=== PATIENT | male | born 1940 | race Caucasian/White ===

== ENCOUNTER → 2019-03-31 06:09 | Outpatient (CLI) | payer MEDICARE, OTHER, SELFPAY ==
[2018-10-10 09:44] VITALS: BMI 33.0
--- NOTE | 2019-03-31 10:32 | PFTCOMP ---
COMPLETE PULMONARY FUNCTION TEST INTERPRETATION Brief HPI: Patient is an 78 year old male, currently under the care of Dr. Orozco, who presents to [facility] for complete pulmonary function tests secondary to diagnosis of COPD. Respiratory therapist reports good effort and reproducible results. Interpretation: Forced expiration spirometry shows no large airways obstructive ventilatory defect with an FEV1 of 113% predicted. There is no significant bronchodilator response by strict ATS criteria. Spirograms are of good quality and plateau normally. The respiratory flow volume loop shows a normal pattern. Lung volumes by body plethysmography show a normal total lung capacity at 6.99 L, 110% predicted. All other lung volumes are within normal limits. Diffusion capacity by carbon monoxide is normal at 105% predicted. The airway resistance is normal. No previous pulmonary function tests were available for review. Impression: These pulmonary function tests are within normal limits.
== END ==
PROVIDERS: Family Provider Physician Assistant; PCP Physician Assistant; Referring Provider Internal Medicine Critical Care Medicine; Visit Provider Internal Medicine Critical Care Medicine
DX: J45.909 Unspecified asthma, uncomplicated (principal); G47.33 Obstructive sleep apnea (adult) (pediatric)
CPT/HCPCS: 94060; 94726; 94729

== ENCOUNTER → 2021-05-19 11:31 | Outpatient (CLI) | payer MEDICARE, OTHER, SELFPAY ==
[2021-04-29 13:41] VITALS: BMI 33.2
[2021-05-19 13:10] LABS: PSA,Total- Diagnostic 7.21 ng/mL (0.0-4.0)
== END ==
PROVIDERS: PCP Physician Assistant; Referring Provider Nurse Practitioner Adult Health; Visit Provider Nurse Practitioner Adult Health
DX: R31.0 Gross hematuria (principal)
CPT/HCPCS: 36415; 84153

== ENCOUNTER 2021-07-07 22:58 | Inpatient (IN) | payer MEDICARE, OTHER, SELFPAY ==
[2021-07-07 21:05] VITALS: BP 158/94; PULSE 94; RESP 16; TEMP 36.6; O2SAT 100
[2021-07-07 22:21] VITALS: BMI 38.7
[2021-07-07 23:04] VITALS: BP 161/97; PULSE 89; RESP 18; TEMP 36.7; O2SAT 100
[2021-07-07] MEDS: 0.9% Saline Lock 10 ML Syringe IV (23:27)
[2021-07-07] MEDS: 0.9% Normal Saline 1,000 ML 50 ML IV (23:27)
[2021-07-07 23:36] VITALS: BMI 38.7
--- NOTE | 2021-07-07 23:44 | EKG12_ITS ---
Test Reason : PRE OP Blood Pressure : / mmHG Vent. Rate : 085 BPM Atrial Rate : 085 BPM P-R Int : 178 ms QRS Dur : 076 ms QT Int : 362 ms P-R-T Axes : 058 044 052 degrees QTc Int : 430 ms Normal sinus rhythm Normal ECG No previous ECGs available Confirmed by DANIA MONSIVAIS, FRANCIA ([id number]), scientific editor MIRIAN ANGELES ([id number]) on 07/15/2021 10:22:27 AM Referred By: FLORINA Confirmed By:FRANCIA NAJERA MD
--- NOTE | 2021-07-07 23:47 | HP.PCM_ITS ---
HPI - General General Date of Admission: 07/07/21 HPI Narrative 80-year-old male transferred outside hospital is having severe bleeding from the prostate and bladder CAT scan was done demonstrated them distended bladder they were able to get a catheter in but could not get the clots out so he was transferred here again who tried multiple catheters can get the clots out so when taken the surgery to irrigate out the blood clots and hopefully find the source of the bleeding. FOR[facility]LY [facility] Medical History Allergic rhinitis Anemia Anxiety Arthritis Asthma Asthma Back pain BPH (benign prostatic hyperplasia) Bronchitis C. difficile diarrhea Cancer Cancer of right kidney Carpal tunnel syndrome, bilateral CKD (chronic kidney disease) Cough CPAP (continuous positive airway pressure) dependence Diabetes Former smoker GERD (gastroesophageal reflux disease) Hearing loss, left Hearing loss, right Hematuria Hemorrhoids High cholesterol History of colon polyps History of stress test HLD (hyperlipidemia) HTN (hypertension) Iron deficiency anemia due to chronic blood loss Otitis media, right Pernicious anemia Post-nasal drip Prostatitis RLS (restless legs syndrome) Rosacea Sinusitis Sleep apnea stomach ulcer or duodenal ulcer Thrombocytopenia URI (upper respiratory infection) Home Medications amlodipine 5 mg tablet 5 mg PO DAILY 10/06/18 [History Last Taken Unknown] hydrocodone-acetaminophen 5-325mg 5mg-325mg 0.5 tab PO DAILY PRN tab 10/06/18 [History Last Taken Unknown] lisinopril 40 mg tablet 40 mg PO DAILY 10/06/18 [History Last Taken Unknown] albuterol sulfate 90 mcg/actuation aerosol inhaler 2 puff INHALATION Q4H PRN #1 device 10/10/18 [Rx Last Taken Unknown] ascorbic acid (vitamin C) 500 mg capsule 500 mg PO QDAY cap 10/10/18 [History Last Taken Unknown] budesonide 0.5 mg/2 mL suspension for nebulization 2 ml INHALATION BID #120 ml 10/10/18 [Rx Last Taken Unknown] citalopram 20 mg tablet 30 mg PO DAILY tab 10/10/18 [History Last Taken Unknown] cyanocobalamin (vitamin B-12) 1,000 mcg/mL injection solution 100 mcg IM QMONTH 10/10/18 [History Last Taken Unknown] dicyclomine 10 mg capsule 10 mg PO BID cap 10/10/18 [History Last Taken Unknown] pravastatin 10 mg tablet 5 mg PO DAILY tab 10/10/18 [History Last Taken Unknown] vitamin B complex 1 tab PO DAILY 10/10/18 [History Last Taken Unknown] Allergy/AdvReac Type Severity Reaction Status Date / Time No Known Allergies Allergy Verified 06/23/21 15:24 Family History Father CAD (coronary artery disease) Hypertension Brother CAD (coronary artery disease) Mother Hypertension CVA (cerebral vascular accident) Surgical History H/O bilateral inguinal hernia repair lens replacement right eye S/P TURP Top of kidney removed Social History Smoking Status: Never smoker alcohol intake: former ROS Constitutional Constitutional: Denies chills, fever(s) or malaise Eyes Eyes: Denies blurry vision or change in vision ENT HEENT: Reports none Cardiovascular Cardiovascular: Denies chest pain or palpitations Respiratory/Chest Respiratory/Chest: Denies cough or shortness of breath with exertion Gastrointestinal Gastrointestinal: Denies abdominal pain, constipation or diarrhea Musculoskeletal Musculoskeletal: Denies back pain, joint stiffness or joint swelling Integumentary Integumentary: Denies dry skin, jaundice, lesions or rash Neurologic Neurologic: Denies confusion, syncope or weakness Psychiatric Psychiatric: Reports none; Denies anxiety or depression Endocrine Endocrinology: Denies excessive sweating, fatigue or flushing Hematologic/Lymphatic Hematologic/Lymphatic: Denies anemia, easy bleeding or easy bruising Vital Signs Vital Signs Vital Signs: 07/07/21 23:04 Temperature 98.1 F Temperature Source Oral Pulse Rate 89 Respiratory Rate 18 Blood Pressure 161/97 H Blood Pressure Mean 118 Blood Pressure Source Monitor Blood Pressure Position Semi-Fowlers Blood Pressure Location Right Arm Pulse Ox 100 Oxygen Delivery Method Room Air Weight Weight: 93.1 kg Body Mass Index (BMI) 38.7 Physical Exam Const alert and oriented x3 General Appearance: cooperative HEENT normocephalic, head/scalp atraumatic, EAC's normal and TM's normal bilaterally Eyes PERRL and EOMs intact bilaterally Pupil: sluggish Neck no lymphadenopathy, supple and no JVD General: trachea midline Lymph Lymphatic: no lymphadenopathy noted, lymphedema and lymphadenopathy Resp normal respiratory effort, normal air movement and clear to auscultation bilaterally Cardio regular rate, regular rhythm and peripheral pulses 2+ throughout GI soft to palpation, non-tender and non-distended Extremity normal capillary refill and no clubbing, cyanosis or edema General Extremity: no tenderness to palpation of joints or extremities Skin no rashes or lesions noted General Skin Exam: turgor normal Lesions: no lesions Rashes: no rashes Neuro CN's II-XII intact bilaterally Speech: speech normal Motor Exam: strength 5/5 throughout; Negative for general weakness Psych thought process normal, cooperative and affect normal Appearance: appropriate Assessment & Plan Assessment/Plan (1) Hematuria: QUALIFIERS: Hematuria type: gross Qualified Code(s): R31.0 - Gross hematuria PLAN: Admitted for gross hematuria and clot retention plan to take to the operating room to evacuate clots and see the source of the bleeding control bleeding.
[2021-07-07 23:59] LABS: Absolute Lymphocyte Count 0.91 X10^3/uL (0.83-4.51); Absolute Neutrophil Count 9.3 X10^3/uL (2.0-7.7); Basophil# 0.01 X10^3/uL; Basophil% 0.1 % (0-1); Hematocrit 32.8 % (40-54); Hemoglobin 10.2 g/dL (13.0-16.5); Lymphocyte # 0.91 X10^3/ul (0.83-4.51); Lymphocyte % 8.1 % (19-41); Mean Corp Hgb Conc 31.1 g/dL (32-36); Mean Corpuscular Hgb 27.9 pg (27.0-32.0); Mean Corpuscular Volume 89.9 fL (80-94); Mean Platelet Vol. 9.9 fl (6.2-12.0); Monocyte# 0.98 X10^3/uL; Monocyte% 8.7 % (0-10); NRBC Flagged by Analyzer 0 % (0-5); Neutrophil # 9.32 X10^3/uL (2.7-7.7); Neutrophil % 82.7 % (47-70); Platelet Count 215 K/mm3 (150-450); RBC Distribution Width CV 16.3 % (11.6-14.6); RBC Distribution Width SD 54.4 fl (35.1-43.9); Red Blood Count 3.65 M/mm3 (4.6-6.2); White Blood Count 11.3 K/mm3 (4.4-11.0)
[2021-07-08] VITALS (14 sets, daily range): BP systolic 95–161; BP diastolic 44–97; PULSE 61–97; RESP 16–18; TEMP 35.7–37.2; O2SAT 97–100
[2021-07-08 00:36] LABS: Anion Gap 7 (5-15); BUN 29 mg/dL (7-18); BUN/Creat Ratio 16.6 RATIO (10-20); Calcium,Total 8.9 mg/dL (8.5-10.1); Chloride 105 mmol/L (98-107); Creatinine, Serum 1.75 mg/dL (0.70-1.30); EST Glomerular Filtration Rate 40 mL/min (>60); Est Glom Filt Rate - Afr Amer 48 mL/min (>60); Estimated Creatinine Clearance 24.07 ml/min; Glucose 176 mg/dL (74-106); Potassium 4.8 mmol/L (3.5-5.1); Sodium Level 137 mmol/L (136-145)
--- NOTE | 2021-07-08 00:36 | PCM.OPRPT ---
Report of Operation Date of Procedure: 07/08/21 Pre-Operative Diagnosis: Bladder hemorrhaging Post-Operative Diagnosis: Same Surgery/Procedure Performed:: Cystoscopy evacuation of blood clots and placement of a three-way 24 Faroese catheter Description of Surgical Findings:: 80-year-old male who was transferred to the hospital here from outside line facility he was in retention of urine with clots was unable to get the catheter irrigated because of the thick clots was transferred here to the floor and the nurses tried to irrigate the cath catheter we tried irrigating the catheter could not get a clear so we took the patient to surgery this evening, patient underwent general anesthetic put a 26 Faroese continuous-flow resectoscope into the bladder and found a whole bunch of dark old clots into the bladder manually irrigated out all these clots until I got all cleared out the main clots but he still had some bleeding and then irrigated to I got all the clots out and then put a 24 Faroese catheter into the bladder with 60 cc in the balloon and started continuous irrigation the urine was a light minor color with irrigation. The source of the bleeding is not clear I could not see the source of bleeding because of the extensive amount of hemorrhage he does had a huge amount of clots coming from the bladder that were evacuated out nothing was sent for pathology. Patient anesthetic is being reversed and will continue with CBI irrigation. Surgeon: jan Type of Anesthesia: General Drains: [address] Admit VTE Documentation VTE Present on Admission: No VTE Mechan Device Prophylaxis: SCD's
[2021-07-08 01:26] LABS: Bedside Glucose 153 mg/dL (70-110)
--- NOTE | 2021-07-08 01:29 | SUR.PHASEI ---
In PACU; this nurse noted abdomen distention. Firm. Not painful. Report given to floor nurse who agrees with abd assessment.
[2021-07-08] MEDS: Ciprofloxacin 250 MG Tablet PO ×3 (03:14→21:05)
[2021-07-08] MEDS: 0.9% Normal Saline 1,000 ML 50 ML IV (05:48)
[2021-07-08] MEDS: Budesonide Respules 0.5 MG/2 ML AMPUL.NEB. INHALATION ×2 (06:58→17:24)
[2021-07-08] MEDS: Dicyclomine 10 MG Capsule PO ×2 (07:25→16:01)
--- NOTE | 2021-07-08 07:43 | CON.PCM_ITS ---
Consult 80-year-old male who was admitted last night for hemorrhage from his bladder he was taken to surgery underwent cystoscopy evacuation of blood clots we put a 24 Citizen Of [place] catheter in the bladder with 60 cc in the balloon and he is on continuous bladder irrigation, this morning the urine is still bright minor red-colored urine with irrigation no clots but the bleeding has not stopped yet source of bleeding is not clear I could not see the source of the bleeding loss and surgery is too bloody understanding This was explained to the patient but at his age she is has a difficulty.. hopefully the bleeding will resolve on it.s own We will continue with bladder irrigation.
[2021-07-08] MEDS: amLODIPine 5 MG Tablet PO (08:47)
[2021-07-08] MEDS: Lisinopril 40 MG Tablet PO (08:47)
[2021-07-08] MEDS: Docusate Sodium 100 MG Capsule PO ×2 (08:48→21:05)
[2021-07-08] MEDS: Bisacodyl 10 MG Suppository RC (08:48)
--- NOTE | 2021-07-08 09:22 | PCS.PANDOC ---
PANDEMIC DOCUMENTATION INITIATED: Date: 05/19/2021 Time: 190
--- NOTE | 2021-07-08 10:59 | CASEMGMT ---
Addendum entered by Leigh Aguayo 07/08/21 14:10: Went to patient bedside and patient using restroom. Upon return patient was placed back in bed and resting. Called patient Elizabet listed cell phone in demographics- no answer and VM did not verify correct identity so therefore no VM was left. RNCM will continue to follow for RNCM assessment and DC planning coordination needs. YEISON Clayton Original Note: Attempted RNCM IA- patient sleeping soundly, not aroused by verbal stimuli. Will let patient rest and re-attempt later today. YEISON Haji
--- NOTE | 2021-07-08 13:22 | NURSING ---
manually irrigated w/ NS as directed by primary RN as clotted off twice. large amt of large clots extracted. after clot irrigation now bola minor red. primary at bedside.
[2021-07-08] MEDS: Menthol/Lanolin/Calamine/Znox 113 GM Tube 1 APPLIC TOPICAL ×2 (15:47→21:05)
--- NOTE | 2021-07-08 15:57 | CASEMGMT ---
Social Work Note MARISA reviewed chart. Per chart, pt is primary caregiver for . SW asked RN. RN states pt's daughter is currently taking care of pt's while pt is at [facility]. Leigh Zarco [employer], BOWL ATTENDANT
[2021-07-08] MEDS: Albuterol 2.5 MG/3 ML VIAL.NEB. INHALATION (17:25)
[2021-07-08] MEDS: Acetaminophen 500 MG Tablet PO (19:28)
[2021-07-08] MEDS: Pravastatin 20 MG Tablet 5 MG PO (21:05)
[2021-07-09] VITALS (9 sets, daily range): BP systolic 100–129; BP diastolic 48–60; PULSE 83–98; RESP 16–18; TEMP 36.8–37.2; O2SAT 93–97
[2021-07-09] MEDS: Acetaminophen 500 MG Tablet PO ×2 (02:11→16:18)
[2021-07-09] MEDS: 0.9% Normal Saline 1,000 ML 50 ML IV ×2 (02:22→22:06)
[2021-07-09] MEDS: Menthol/Lanolin/Calamine/Znox 113 GM Tube 1 APPLIC TOPICAL ×3 (06:02→22:04)
[2021-07-09] MEDS: Dicyclomine 10 MG Capsule PO ×2 (06:29→16:18)
[2021-07-09] MEDS: Budesonide Respules 0.5 MG/2 ML AMPUL.NEB. INHALATION ×2 (06:52→20:01)
--- NOTE | 2021-07-09 07:24 | CON.PCM_ITS ---
Consult Date of Consult: 07/09/21 patient was admitted a few days ago with gross hematuria clot retention was taken to the surgery in the middle of the night evacuated a bunch of clots from the bladder really could not see the source of bleeding we put a three-way catheter in the bladder and continue with irrigation this point the urine is still bloody but it is getting better little more clear no clots can start him on Amicar to see if we get the bleeding to stop he is clinically stable. But however he still not able to go home because he still h as active bleeding will continue with irrigation.
--- NOTE | 2021-07-09 07:43 | PCM.PN.HOSP ---
Subjective Subjective Patient is an 80-year-old gentleman transferred from [facility] in hospital with hematuria underwent cystoscopy with evacuation of blood clot and placement of three-way 24 Guamanian catheter and subsequently admitted to regular nursing floor for further management. Hospitalist service was consulted to assist with management of patient medical comorbidities Objective Data Objective Data Vital Signs: Vital Signs Temp Pulse Resp BP Pulse Ox 98.5 F 92 16 100/51 L 97 07/09/21 03:54 07/09/21 06:52 07/09/21 06:52 07/09/21 03:54 07/09/21 03:54 Oxygen Delivery Method Room Air Weight: 93.1 kg Body Mass Index (BMI) 38.7 Intake & Output: Intake and Output for Last 24 Hours 07/07/21 07/08/21 07/09/21 23:59 23:59 23:59 Intake Total 617.5 / 617.5 1000 / 1000 Output Total 95991 / 35294 22642 / 37451 Balance -05671.5 / -56432.5 -46748 / -98692 Medical Nutrition Assessment Dietitian: Malnutrition Criteria Met Start: 07/08/21 12:39 Freq: Status: Active Protocol: Document 07/08/21 12:39 AG (Rec: 07/08/21 12:39 AG [id number]) Nutrition Malnutrition Evidence of Malnutrition Exists Yes Malnutrition (moderate): Acute Illness/Injury Evidenced By Suboptimal Energy Intake ( Moderate),Weight Loss ( Moderate) Clinical Problem Acute Disease or Injury Related Malnutrition Etiology moderate, acute malnutrition r /t decreased appetite and inadequate energy intake w/ acute illness Signs/Symptoms as evidenced by estimated PO intake meeting <75% of estimated nutritional needs >1 week; unintentional wt loss 9 .7#/4.5% wt loss x 3 weeks Status Active Problem Recommendation Dietitian Recommendations/Changes continue regular diet; will add 4oz ensure compact w/ dinner for additional calories /protein if consumed. Lab / Micro Data Result Diagrams: 07/07/21 23:46 07/07/21 23:46 Physical Exam Narrative GENERAL: cooperative HEENT: Atraumatic; EYES; Anicteric, Normal Conjunctiva NECK; supple, normal thyroid, RESPIRATORY: Diminished to auscultation CARDIOVASCULAR: Regular S1 S2, GI: soft, normoactive bowel sounds, : Horner catheter in place with gross hematuria EXTREMITIES: No edema, no clubbing, MUSCULOSKELETAL: no muscle waisting NEURO: Awake; no lateralizing signs. SKIN: No Rash PSYCH; Flat affect Assessment & Plan Assessment/Plan (1) Hematuria: QUALIFIERS: Hematuria type: gross Qualified Code(s): R31.0 - Gross hematuria PLAN: Patient is an 80-year-old gentleman transferred from [facility] in hospital with hematuria underwent cystoscopy with evacuation of blood clot and placement of three-way 24 Guamanian catheter and subsequently admitted to regular nursing floor for further management. Hospitalist service was consulted to assist with management of patient medical comorbidities 1. Yo hematuria ?Secondary to bladder hemorrhaging. Underwent cystoscopy with evacuation of blood clot and placement of three-way 24 Guamanian catheter on 07/08/[address] Scott 2. Anemia - Secondary to acute blood loss anemia monitoring H&H and transfuse if patient becomes symptomatic or hemoglobin falls below 7 3. Essential hypertension ?Patient blood pressure relatively on the low side his antihypertensives held 4. BPH - on finasteride 5. Dyslipidemia -Patient is on statin therapy, continued at home dose 6. History of renal cell carcinoma ?Status post right partial nephrectomy 7 history of peptic ulcer disease with H. pylori ?Treated 8. B12 deficiency ?Patient is on replacement therapy 9. Vitamin B12 deficiency ?On replacement therapy did continue 10. Obesity with BMI of 38.8 ?Weight loss advised 11. DVT prophylaxis ?Chemoprophylaxis contraindicated in view of patient from hematuria Advance planning; did discuss with the patient regarding advanced directives as well as CODE STATUS. Did explain the various scenarios involved ( FULL CODE, DNR CCA, DNR CCA with no intubation, and DNR CC and what each meant) patient for full code with CPR and intubation if needed. Order was placed. Time spent on discussion 18 minutes. Charges/Coding Visit Charges Inpatient E&M: 30453 Subs Hosp L3 Procedures Hospitalists Procedures: 57581 Advncd Care Plan 30 Min
[2021-07-09] MEDS: Ciprofloxacin 250 MG Tablet PO ×2 (08:46→22:04)
[2021-07-09 09:10] LABS: Absolute Lymphocyte Count 1.04 X10^3/uL (0.83-4.51); Absolute Neutrophil Count 5.2 X10^3/uL (2.0-7.7); Basophil# 0.02 X10^3/uL; Basophil% 0.3 % (0-1); Eosinophil# 0.03 X10^3/uL; Eosinophils% 0.4 % (0-5); Hematocrit 18.9 % (40-54); Hemoglobin 6.1 g/dL (13.0-16.5); Lymphocyte # 1.04 X10^3/ul (0.83-4.51); Mean Corp Hgb Conc 32.3 g/dL (32-36); Mean Corpuscular Hgb 28.6 pg (27.0-32.0); Mean Corpuscular Volume 88.7 fL (80-94); Mean Platelet Vol. 9.5 fl (6.2-12.0); Monocyte# 0.58 X10^3/uL; Monocyte% 8.4 % (0-10); NRBC Flagged by Analyzer 0 % (0-5); Neutrophil # 5.22 X10^3/uL (2.7-7.7); Neutrophil % 75.3 % (47-70); Platelet Count 131 K/mm3 (150-450); RBC Distribution Width CV 16.7 % (11.6-14.6); Red Blood Count 2.13 M/mm3 (4.6-6.2); White Blood Count 6.9 K/mm3 (4.4-11.0)
[2021-07-09 09:29] LABS: Anion Gap 7 (5-15); BUN 43 mg/dL (7-18); Calcium,Total 8.1 mg/dL (8.5-10.1); Chloride 112 mmol/L (98-107); Creatinine, Serum 1.72 mg/dL (0.70-1.30); EST Glomerular Filtration Rate 41 mL/min (>60); Est Glom Filt Rate - Afr Amer 49 mL/min (>60); Estimated Creatinine Clearance 24.49 ml/min; Glucose 147 mg/dL (74-106); Magnesium 2.2 mg/dL (1.6-2.6); Potassium 3.9 mmol/L (3.5-5.1); Sodium Level 143 mmol/L (136-145)
--- NOTE | 2021-07-09 10:32 | CASEMGMT ---
RN CM Assessment Introduced role of RN CM to patient. Patient is alert, oriented and able to participate in RN CM Assessment. Care providers, pharmacy, and demographics verified. Admit Dx: Gross Hematuria, Urinary retention Re-Admit: No Barriers/Issues: Patient takes care of his with Dementia. His dtr Jennie whom lives in [place] is currently caring for his while patient is in the hospital. 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 Dtr Jennie is his only living child- two son's (one at 13yo and other 43yo with muscular dystrophy). His has COPD, has a bunch of DME like Nebulizer if patient needed to utilize. Patient has a cane but was not using prior as he was independent. PCP: PADMINI Doty Specialists: See's specialist at [facility] (Hem and General durgery) [facility]: [facility] A/B Rx Benefit: Yes with AARP and [facility] Supp LNOK: Elizabet (Has Dementia, was a nurse), Dtr Jennie Winters LW/HPOA: Completed with [employer] firm- Aware will place a copy on file if brought in. HPOA- Dtr Jennie and her Living Arrangements: Lives with his whom he cares for in a upper level apartment with 12 steps ADL?s: Independent with ambulation and ADLs Transportation: Patient drives DME: Has a cane but has not had to use prior to this admission. 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 Patient states may have a transfusion but if still having some weakness at DC and additional PT is recommended- will prefer to go outpatient to [facility] in [facility] PLAN: Home with possible outpatient PT and f/u mobility if needing a walker. Ac Aguayo RNCM
[2021-07-09] MEDS: Pravastatin 20 MG Tablet 5 MG PO (22:04)
[2021-07-10] VITALS (8 sets, daily range): BP systolic 116–149; BP diastolic 62–77; PULSE 87–97; RESP 18–20; TEMP 36.6–37.3; O2SAT 93–97
[2021-07-10 05:36] LABS: Absolute Lymphocyte Count 0.94 X10^3/uL (0.83-4.51); Absolute Neutrophil Count 4.2 X10^3/uL (2.0-7.7); Basophil# 0.01 X10^3/uL; Basophil% 0.2 % (0-1); Eosinophil# 0.04 X10^3/uL; Eosinophils% 0.7 % (0-5); Hematocrit 19.8 % (40-54); Hemoglobin 6.3 g/dL (13.0-16.5); Lymphocyte # 0.94 X10^3/ul (0.83-4.51); Lymphocyte % 16.8 % (19-41); Mean Corp Hgb Conc 31.8 g/dL (32-36); Mean Corpuscular Hgb 28.8 pg (27.0-32.0); Mean Corpuscular Volume 90.4 fL (80-94); Mean Platelet Vol. 9.4 fl (6.2-12.0); Monocyte# 0.36 X10^3/uL; Monocyte% 6.5 % (0-10); NRBC Flagged by Analyzer 0 % (0-5); Neutrophil % 75.3 % (47-70); Platelet Count 113 K/mm3 (150-450); RBC Distribution Width CV 15.9 % (11.6-14.6); RBC Distribution Width SD 53.1 fl (35.1-43.9); Red Blood Count 2.19 M/mm3 (4.6-6.2); White Blood Count 5.6 K/mm3 (4.4-11.0)
[2021-07-10 06:23] LABS: Anion Gap 6 (5-15); BUN 29 mg/dL (7-18); BUN/Creat Ratio 22.1 RATIO (10-20); Chloride 113 mmol/L (98-107); Creatinine, Serum 1.31 mg/dL (0.70-1.30); EST Glomerular Filtration Rate 56 mL/min (>60); Est Glom Filt Rate - Afr Amer 67 mL/min (>60); Estimated Creatinine Clearance 32.16 ml/min; Glucose 110 mg/dL (74-106); Potassium 3.7 mmol/L (3.5-5.1); Sodium Level 144 mmol/L (136-145)
[2021-07-10] MEDS: Menthol/Lanolin/Calamine/Znox 113 GM Tube 1 APPLIC TOPICAL ×3 (06:28→22:35)
[2021-07-10] MEDS: Acetaminophen 500 MG Tablet PO (06:31)
[2021-07-10] MEDS: Budesonide Respules 0.5 MG/2 ML AMPUL.NEB. INHALATION ×2 (07:29→19:01)
--- NOTE | 2021-07-10 07:29 | PN.HOSP_ITS ---
Subjective Subjective Patient was transfused with 1 unit PRBC on 07/09/2021. Hemoglobin did drop further to 6.3 resulting in an additional unit being given this a.m. Objective Data Objective Data Vital Signs: Vital Signs Temp Pulse Resp BP Pulse Ox 98.2 F 88 18 136/62 H 97 07/10/21 03:37 07/10/21 03:37 07/10/21 03:37 07/10/21 03:37 07/10/21 03:37 Oxygen Delivery Method Room Air Weight: 93.1 kg Body Mass Index (BMI) 38.7 Intake & Output: Intake and Output for Last 24 Hours 07/08/21 07/09/21 07/10/21 23:59 23:59 23:59 Intake Total 617.5 / 617.5 2386.67 / 2386.67 Output Total 14556 / 21841 63008 / 60105 7000 / 7000 Balance -94721.5 / -08957.5 -28480.33 / -82855.33 -7000 / -7000 Medical Nutrition Assessment Dietitian: Malnutrition Criteria Met Start: 07/08/21 12:39 Freq: Status: Active Protocol: Document 07/08/21 12:39 AG (Rec: 07/08/21 12:39 AG [id number]) Nutrition Malnutrition Evidence of Malnutrition Exists Yes Malnutrition (moderate): Acute Illness/Injury Evidenced By Suboptimal Energy Intake ( Moderate),Weight Loss ( Moderate) Clinical Problem Acute Disease or Injury Related Malnutrition Etiology moderate, acute malnutrition r /t decreased appetite and inadequate energy intake w/ acute illness Signs/Symptoms as evidenced by estimated PO intake meeting <75% of estimated nutritional needs >1 week; unintentional wt loss 9 .7#/4.5% wt loss x 3 weeks Status Active Problem Recommendation Dietitian Recommendations/Changes continue regular diet; will add 4oz ensure compact w/ dinner for additional calories /protein if consumed. Lab / Micro Data Result Diagrams: 07/10/21 05:26 07/10/21 05:26 Labs: Laboratory Results - last 24 hr 07/09/21 08:55: WBC 6.9, RBC 2.13 L, Hgb 6.1 L, Hct 18.9 L, MCV 88.7, MCH 28.6, MCHC 32.3, RDW Std Deviation 54.0 H, RDW Coeff of Sita 16.7 H, Plt Count 131 L, MPV 9.5, Immature Gran % (Auto) 0.600, Neut % (Auto) 75.3 H, Lymph % (Auto) 15.0 L, Bonner % (Auto) 8.4, Eos % (Auto) 0.4, Baso % (Auto) 0.3, Absolute Neuts (auto) 5.2, Absolute Lymphs (auto) 1.04, Nucleated RBC % 0 07/09/21 08:55: Sodium 143, Potassium 3.9, Chloride 112 H, Carbon Dioxide 24.0, Anion Gap 7, BUN 43 H, Creatinine 1.72 H, Estim Creat Clear Calc 24.49, Est GFR (MDRD) Af Amer 49 L, Est GFR (MDRD) Non-Af 41 L, BUN/Creatinine Ratio 25.0 H, Glucose 147 H, Calcium 8.1 L, Magnesium 2.2 07/09/21 08:55: Blood Type O NEGATIVE, Antibody Screen NEGATIVE, Crossmatch See Detail 07/10/21 05:26: WBC 5.6, RBC 2.19 L, Hgb 6.3 L, Hct 19.8 L, MCV 90.4, MCH 28.8, MCHC 31.8 L, RDW Std Deviation 53.1 H, RDW Coeff of Sita 15.9 H, Plt Count 113 L, MPV 9.4, Immature Gran % (Auto) 0.500, Neut % (Auto) 75.3 H, Lymph % (Auto) 16.8 L, Bonner % (Auto) 6.5, Eos % (Auto) 0.7, Baso % (Auto) 0.2, Absolute Neuts (auto) 4.2, Absolute Lymphs (auto) 0.94, Nucleated RBC % 0 07/10/21 05:26: Sodium 144, Potassium 3.7, Chloride 113 H, Carbon Dioxide 25.0, Anion Gap 6, BUN 29 H, Creatinine 1.31 H, Estim Creat Clear Calc 32.16, Est GFR (MDRD) Af Amer 67, Est GFR (MDRD) Non-Af 56 L, BUN/Creatinine Ratio 22.1 H, Glucose 110 H, Calcium 8.0 L, Magnesium 2.0 Physical Exam Narrative GENERAL: cooperative HEENT: Atraumatic; EYES; Anicteric, Normal Conjunctiva NECK; supple, normal thyroid, RESPIRATORY: Diminished to auscultation CARDIOVASCULAR: Regular S1 S2, GI: soft, normoactive bowel sounds, : Horner catheter in place with gross hematuria EXTREMITIES: No edema, no clubbing, MUSCULOSKELETAL: no muscle waisting NEURO: Awake; no lateralizing signs. SKIN: No Rash PSYCH; Flat affect Assessment & Plan Assessment/Plan (1) Hematuria: QUALIFIERS: Hematuria type: gross Qualified Code(s): R31.0 - Gross hematuria PLAN: Patient is an 80-year-old gentleman transferred from [facility] in hospital with hematuria underwent cystoscopy with evacuation of blood clot and placement of three-way 24 Guatemalan catheter and subsequently admitted to regular nursing floor for further management. Hospitalist service was consulted to ass ist with management of patient medical comorbidities 1. Yo hematuria ?Secondary to bladder hemorrhaging. Underwent cystoscopy with evacuation of blood clot and placement of three-way 24 [place] catheter on 07/08/[address] Scott 2. Anemia - Secondary to acute blood loss anemia monitoring H&H and transfuse if patient becomes symptomatic or hemoglobin falls below 7 -07/10/2021; Patient was transfused with 1 unit PRBC on 07/09/2021. Hemoglobin did drop further to 6.3 resulting in an additional unit being given this a.m. repeat H&H ordered 3. Essential hypertension ?Patient blood pressure relatively on the low side his antihypertensives held 4. BPH - on finasteride 5. Dyslipidemia -Patient is on statin therapy, continued at home dose 6. History of renal cell carcinoma ?Status post right partial nephrectomy 7 history of peptic ulcer disease with H. pylori ?Treated 8. B12 deficiency ?Patient is on replacement therapy 9. Vitamin B12 deficiency ?On replacement therapy did continue 10. Obesity with BMI of 38.8 ?Weight loss advised 11. DVT prophylaxis ?Chemoprophylaxis contraindicated in view of patient from hematuria Charges/Coding Visit Charges Inpatient E&M: 19337 Subs Hosp L3
--- NOTE | 2021-07-10 07:37 | CON.PCM_ITS ---
Consult Date of Consult: 07/10/21 Yesterday the blood pressure was low so we checked the hemoglobin level consult hospitalist he was given a blood transfusion today his blood pressure is better bleeding from the bladder slowed down significantly I think at this point we can stop irrigation and clamped the port we will see if he can go without irrigatio n. If it stays clear may be can go home tomorrow with a catheter.
[2021-07-10] MEDS: Ciprofloxacin 250 MG Tablet PO ×2 (10:42→22:35)
[2021-07-10] MEDS: Lisinopril 40 MG Tablet PO (10:42)
[2021-07-10] MEDS: Cholecalciferol (VIT D3) 25 MCG TABLET (1,000 UNITS) 50 MCG PO (10:42)
[2021-07-10] MEDS: Ferrous Sulfate 325 MG Tablet PO (10:42)
[2021-07-10] MEDS: amLODIPine 5 MG Tablet PO (10:42)
[2021-07-10] MEDS: Finasteride 5 MG Tablet PO (10:44)
--- NOTE | 2021-07-10 10:57 | CASEMGMT ---
Addendum entered by Cas Brown 07/10/21 11:33: TC received back from Clary, pt's granddaughter. Clary was made aware of d/c plans. She was made aware pt declines HHC and pt interested in OP therapy at [facility] and will be provided w/script for same. She inquired if pt would be strong enough to return home and to do stairs. She was made aware pt informed this RN CM he felt he would do well @ home and that therapy would be working w/pt today to assess his strength/ability. Clary voiced concern she and her mother (Jennie, pt's dtr) have w/pt taking care of his at home, as she needs 24/7 care and states, He's struggling to take care of himself and her also, but he won't allow anyone to come in to help them. Clary inquiring if there are any resources or suggestions of what they may be able to do. Tiffanie CUNNINGHAM, made aware. Addendum entered by Cas Brown 07/10/21 11:08: Discussed d/c plan w/pt at this time as well. He states he still wishes to return home, but that he has been weak and has not been OOB much. Pt made aware therapy to come work w/him today. He voices appreciation. Discussed HHC and OP therapy. Pt declines HHC, stating he still feels he may be interested in OP therapy @ [facility], as he has went there in the past. STEPHANIE JARVIS informed him script can be provided prior to d/c for same and he voices appreciation. Original Note: STEPHANIE JARVIS NOTE: This RN CM received message that pt's granddaughter, Clary Winters, requesting call to her to update her on pt's discharge plan. STEPHANIE JARVIS to pt's room to talk w/pt. Introduced self and role of STEPHANIE JARVIS. Pt gave permission for STEPHANIE JARVIS to discuss his care/discharge plan w/Clary. Noted pt's , Elizabet, listed on demographics as being primary contact for pt. Per pt, Elizabet has dementia and he requested Elizabet be removed from contacts and for his daughter, Jennie, to be primary contact. Demographics updated at this time. TC to Clary. No answer. VM left for Clary to return call to this RN CM or MARISA when she is available. Phone numbers provided. Leopoldo WERNER RN CM
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
[2021-07-10] MEDS: 0.9% Normal Saline 1,000 ML 50 ML IV (19:14)
[2021-07-10] MEDS: Docusate Sodium 100 MG Capsule PO (22:35)
[2021-07-10] MEDS: Pravastatin 20 MG Tablet 5 MG PO (22:36)
[2021-07-11] VITALS (9 sets, daily range): BP systolic 114–134; BP diastolic 60–91; PULSE 75–94; RESP 17–18; TEMP 36.3–37.1; O2SAT 95–99
[2021-07-11] MEDS: Dicyclomine 10 MG Capsule PO (06:20)
[2021-07-11] MEDS: Menthol/Lanolin/Calamine/Znox 113 GM Tube 1 APPLIC TOPICAL ×2 (06:20→15:11)
[2021-07-11] MEDS: Budesonide Respules 0.5 MG/2 ML AMPUL.NEB. INHALATION ×2 (06:50→19:03)
[2021-07-11 06:53] LABS: Absolute Lymphocyte Count 0.76 X10^3/uL (0.83-4.51); Absolute Neutrophil Count 4.2 X10^3/uL (2.0-7.7); Basophil# 0.01 X10^3/uL; Basophil% 0.2 % (0-1); Eosinophil# 0.05 X10^3/uL; Eosinophils% 0.9 % (0-5); Hematocrit 20.8 % (40-54); Hemoglobin 6.7 g/dL (13.0-16.5); Lymphocyte # 0.76 X10^3/ul (0.83-4.51); Lymphocyte % 14.2 % (19-41); Mean Corp Hgb Conc 32.2 g/dL (32-36); Mean Corpuscular Hgb 28.8 pg (27.0-32.0); Mean Corpuscular Volume 89.3 fL (80-94); Mean Platelet Vol. 10.2 fl (6.2-12.0); Monocyte# 0.33 X10^3/uL; Monocyte% 6.1 % (0-10); NRBC Flagged by Analyzer 0.4 % (0-5); Neutrophil % 78.2 % (47-70); Platelet Count 138 K/mm3 (150-450); RBC Distribution Width CV 15.7 % (11.6-14.6); RBC Distribution Width SD 50.8 fl (35.1-43.9); Red Blood Count 2.33 M/mm3 (4.6-6.2); White Blood Count 5.4 K/mm3 (4.4-11.0)
[2021-07-11 07:22] LABS: Anion Gap 7 (5-15); BUN 19 mg/dL (7-18); BUN/Creat Ratio 18.8 RATIO (10-20); Calcium,Total 7.8 mg/dL (8.5-10.1); Chloride 114 mmol/L (98-107); Creatinine, Serum 1.01 mg/dL (0.70-1.30); EST Glomerular Filtration Rate 75 mL/min (>60); Est Glom Filt Rate - Afr Amer 91 mL/min (>60); Estimated Creatinine Clearance 41.71 ml/min; Glucose 104 mg/dL (74-106); Magnesium 1.7 mg/dL (1.6-2.6); Potassium 3.4 mmol/L (3.5-5.1); Sodium Level 144 mmol/L (136-145)
--- NOTE | 2021-07-11 07:26 | PN.HOSP_ITS ---
Subjective Subjective Patient's hemoglobin down to 6.7 necessitating patient being transfused with 1 unit PRBC. His Horner catheter has been discontinued by urology with plans for patient to be discharged home following his blood transfusion Objective Data Objective Data Vital Signs: Vital Signs Temp Pulse Resp BP Pulse Ox 98.8 F 89 18 124/73 H 98 07/11/21 03:55 07/11/21 06:50 07/11/21 06:50 07/11/21 03:55 07/11/21 06:50 Oxygen Delivery Method Room Air Weight: 93.1 kg Body Mass Index (BMI) 38.7 Intake & Output: Intake and Output for Last 24 Hours 07/09/21 07/10/21 07/11/21 23:59 23:59 23:59 Intake Total 2386.67 / 2386.67 1840 / 1840 740 / 740 Output Total 55166 / 30505 7700 / 7700 1250 / 1250 Balance -89045.33 / -97725.33 -5860 / -5860 -510 / -510 Medical Nutrition Assessment Dietitian: Malnutrition Criteria Met Start: 07/08/21 12:39 Freq: Status: Active Protocol: Document 07/08/21 12:39 AG (Rec: 07/08/21 12:39 AG [id number]) Nutrition Malnutrition Evidence of Malnutrition Exists Yes Malnutrition (moderate): Acute Illness/Injury Evidenced By Suboptimal Energy Intake ( Moderate),Weight Loss ( Moderate) Clinical Problem Acute Disease or Injury Related Malnutrition Etiology moderate, acute malnutrition r /t decreased appetite and inadequate energy intake w/ acute illness Signs/Symptoms as evidenced by estimated PO intake meeting <75% of estimated nutritional needs >1 week; unintentional wt loss 9 .7#/4.5% wt loss x 3 weeks Status Active Problem Recommendation Dietitian Recommendations/Changes continue regular diet; will add 4oz ensure compact w/ dinner for additional calories /protein if consumed. Lab / Micro Data Result Diagrams: 07/11/21 05:40 07/11/21 05:40 Labs: Laboratory Results - last 24 hr 07/09/21 08:55: Blood Type O NEGATIVE, Antibody Screen NEGATIVE, Crossmatch See Detail 07/09/21 08:55: Crossmatch See Detail 07/11/21 05:40: WBC 5.4, RBC 2.33 L, Hgb 6.7 L, Hct 20.8 L, MCV 89.3, MCH 28.8, MCHC 32.2, RDW Std Deviation 50.8 H, RDW Coeff of Sita 15.7 H, Plt Count 138 L, MPV 10.2, Immature Gran % (Auto) 0.400, Neut % (Auto) 78.2 H, Lymph % (Auto) 14.2 L, [place] % (Auto) 6.1, Eos % (Auto) 0.9, Baso % (Auto) 0.2, Absolute Neuts (auto) 4.2, Absolute Lymphs (auto) 0.76 L, Nucleated RBC % 0.4 07/11/21 05:40: Sodium 144, Potassium 3.4 L, Chloride 114 H, Carbon Dioxide 23.0, Anion Gap 7, BUN 19 H, Creatinine 1.01, Estim Creat Clear Calc 41.71, Est GFR (MDRD) Af Amer 91, Est GFR (MDRD) Non-Af 75, BUN/Creatinine Ratio 18.8, Glucose 104, Calcium 7.8 L, Magnesium 1.7 Micro: Microbiology 07/10/21 04:07 Stool C. difficile DNA Amplification - Final Physical Exam Narrative GENERAL: cooperative HEENT: Atraumatic; EYES; Anicteric, Normal Conjunctiva NECK; supple, normal thyroid, RESPIRATORY: Diminished to auscultation CARDIOVASCULAR: Regular S1 S2, GI: soft, normoactive bowel sounds, : Horner catheter in place with gross hematuria EXTREMITIES: No edema, no clubbing, MUSCULOSKELETAL: no muscle waisting NEURO: Awake; no lateralizing signs. SKIN: No Rash PSYCH; Flat affect Assessment & Plan Assessment/Plan (1) Hematuria: QUALIFIERS: Hematuria type: gross Qualified Code(s): R31.0 - Gross hematuria PLAN: Patient is an 80-year-old gentleman transferred from [facility] in hospital with hematuria underwent cystoscopy with evacuation of blood clot and placement of three-way 24 Spanish catheter and subsequently admitted to regular nursing floor for further management. Hospitalist service was consulted to assist with management of patient medical comorbidities 1. Yo hematuria ?Secondary to bladder hemorrhaging. Underwent cystoscopy with evacuation of blood clot and placement of three-way 24 Spanish catheter on 07/08/[address] Scott 2. Anemia - Secondary to acute blood loss anemia monitoring H&H and transfuse if patient becomes symptomatic or hemoglobin falls below 7 -07/10/2021; Patient was transfused with 1 unit PRBC on 07/09/2021. Hemoglobin did drop further to 6.3 resulting in an additional unit being given this a.m. repeat H&H ordered -?07/11/2021. Patient to be transfused 1 additional unit PRBC prior to discharge 3. Essential hypertension ?Patient blood pressure relatively on the low side his antihypertensives held 4. BPH - on finasteride 5. Dyslipidemia -Patient is on statin therapy, continued at home dose 6. History of renal cell carcinoma ?Status post right partial nephrectomy 7 history of peptic ulcer disease with H. pylori ?Treated 8. B12 deficiency ?Patient is on replacement therapy 9. Vitamin B12 deficiency ?On replacement therapy did continue 10. Obesity with BMI of 38.8 ?Weight loss advised 11. DVT prophylaxis ?Chemoprophylaxis contraindicated in view of patient from hematuria Charges/Coding Visit Charges Inpatient E&M: 82721 Subs Hosp L2
--- NOTE | 2021-07-11 07:57 | DS.PCM_ITS ---
Providers Date of Admission: 07/07/21 Primary Care Physician: PADMINI Doty Consultations 07/09/21 07:27 Consult: Hospitalist Routine Consulting Provider: [facility] Reason for Consult: medical manegment, elderly male with bleeding. EMERGENT Consult: No MD Notified: Yes Date Notified: 07/09/21 Time Notified: 07:27 Method of Notification: Verbal Reason For Visit: GROSS HEMATURIA, URINE RETENTION Diagnosis Discharge Diagnosis (1) Hematuria: Status: Acute Code(s): R31.9 - Hematuria, unspecified Qualifiers: Hematuria type: gross Qualified Code(s): R31.0 - Gross hematuria Medications at Discharge Home Medications hydrocodone-acetaminophen 5-325mg 5mg-325mg 0.5 - 1 tab PO Q4H PRN PRN tab 10/06/18 lisinopril 40 mg tablet 40 mg PO DAILY 10/06/18 albuterol sulfate 90 mcg/actuation aerosol inhaler 2 puff INHALATION Q4H PRN #1 device 10/10/18 ascorbic acid (vitamin C) 500 mg capsule 500 mg PO QDAY cap 10/10/18 cyanocobalamin (vitamin B-12) 1,000 mcg/mL injection solution 100 mcg IM QMONTH 10/10/18 dicyclomine 10 mg capsule 10 - 20 mg PO BID cap 10/10/18 pravastatin 10 mg tablet 30 mg PO DAILY tab 10/10/18 vitamin B complex 1 tab PO DAILY 10/10/18 amlodipine [Norvasc] 2.5 mg PO DAILY 07/08/21 cholecalciferol (vitamin D3) 2,000 unit PO DAILY 07/08/21 ciprofloxacin HCl 250 mg PO BID 07/08/21 ferrous sulfate [iron] 325 mg PO DAILY 07/08/21 finasteride 5 mg PO DAILY 07/08/21 Hospital Course Summary of Care Provided Hospital Course: Patient was admitted for gross hematuria was taken to the operating room evacuated blood clots and place a catheter he has a history of a TURP. The bleeding is stopped the catheter was removed today. The patient will get 1 more unit of blood and be discharged home today got a total of 3 units while in the hospital. He will go home today without a catheter as long as he can urinate okay if he still having issues possible to send him home with a catheter. Physical Exam Const alert and oriented x3 General Appearance: cooperative HEENT normocephalic, head/scalp atraumatic, EAC's normal and TM's normal bilaterally Eyes PERRL and EOMs intact bilaterally Pupil: sluggish Neck no lymphadenopathy, supple and no JVD General: trachea midline Lymph Lymphatic: no lymphadenopathy noted, lymphedema and lymphadenopathy Resp normal respiratory effort, normal air movement and clear to auscultation bila terally Cardio regular rate, regular rhythm and peripheral pulses 2+ throughout GI soft to palpation, non-tender and non-distended Extremity normal capillary refill and no clubbing, cyanosis or edema General Extremity: no tenderness to palpation of joints or extremities Skin no rashes or lesions noted General Skin Exam: turgor normal Lesions: no lesions Rashes: no rashes Neuro CN's II-XII intact bilaterally Speech: speech normal Motor Exam: strength 5/5 throughout; Negative for general weakness Psych thought process normal, cooperative and affect normal Appearance: appropriate Medical Records Data Medical Nutrition Assessment Dietitian: Malnutrition Criteria Met Start: 07/08/21 12:39 Freq: Status: Active Protocol: Document 07/08/21 12:39 (Rec: 07/08/21 12:39 [id number]) Nutrition Malnutrition Evidence of Malnutrition Exists Yes Malnutrition (moderate): Acute Illness/Injury Evidenced By Suboptimal Energy Intake ( Moderate),Weight Loss ( Moderate) Clinical Problem Acute Disease or Injury Related Malnutrition Etiology moderate, acute malnutrition r /t decreased appetite and inadequate energy intake w/ acute illness Signs/Symptoms as evidenced by estimated PO intake meeting <75% of estimated nutritional needs >1 week; unintentional wt loss 9 .7#/4.5% wt loss x 3 weeks Status Active Problem Recommendation Dietitian Recommendations/Changes continue regular diet; will add 4oz ensure compact w/ dinner for additional calories /protein if consumed. Weight / BMI Weight Weight: 93.1 kg Body Mass Index (BMI) 38.7 ABG / Lab / Microbiology Data Result Diagrams: 07/11/21 05:40 07/11/21 05:40 Laboratory: Laboratory Results - last 24 hr 07/09/21 08:55: Blood Type O NEGATIVE, Antibody Screen NEGATIVE, Crossmatch See Detail 07/09/21 08:55: Crossmatch See Detail 07/11/21 05:40: WBC 5.4, RBC 2.33 L, Hgb 6.7 L, Hct 20.8 L, MCV 89.3, MCH 28.8, MCHC 32.2, RDW Std Deviation 50.8 H, RDW Coeff of Sita 15.7 H, Plt Count 138 L, MPV 10.2, Immature Gran % (Auto) 0.400, Neut % (Auto) 78.2 H, Lymph % (Auto) 14.2 L, [place] % (Auto) 6.1, Eos % (Auto) 0.9, Baso % (Auto) 0.2, Absolute Neuts (auto) 4.2, Absolute Lymphs (auto) 0.76 L, Nucleated RBC % 0.4 07/11/21 05:40: Sodium 144, Potassium 3.4 L, Chloride 114 H, Carbon Dioxide 23.0, Anion Gap 7, BUN 19 H, Creatinine 1.01, Estim Creat Clear Calc 41.71, Est GFR (MDRD) Af Amer 91, Est GFR (MDRD) Non-Af 75, BUN/Creatinine Ratio 18.8, Glucose 104, Calcium 7.8 L, Magnesium 1.7 Microbiology: Microbiology 07/10/21 04:07 Stool C. difficile DNA Amplification - Final D/C Instructions Discharge Diet: No restrictions Call your doctor if your incision/area has: Sudden Increased Bleeding Meaningful Use Info Meaningful Use Diagnoses (Choose all that apply): None applicable Discharge Plan Admission Admit Date/Time: 07/07/21 22:58 Primary Reason for Your Visit: Gross hematuria and bleeding Attending Provider: Carlo Scott Primary Care Provider: Bia Dwyer Consulting Providers: Micheline Alston ; Arti Calloway ; Ray Peacock ; Luis Carlos Archer Discharge Orders/Prescriptions Prescriptions: Continued hydrocodone-acetaminophen [[place]] 5-325 mg tablet 0.5 - 1 tab PO Q4H PRN PRN (Reason: Pain) RF: 0 lisinopril 40 mg tablet 40 mg PO DAILY RF: 0 ascorbic acid (vitamin C) 500 mg capsule 500 mg PO QDAY RF: 0 vitamin B complex tablet 1 tab PO DAILY RF: 0 cyanocobalamin (vitamin B-12) 1,000 mcg/mL solution 100 mcg IM QMONTH RF: 0 pravastatin 10 mg tablet 30 mg PO DAILY RF: 0 dicyclomine 10 mg capsule 10 - 20 mg PO BID RF: 0 albuterol sulfate 90 mcg/actuation HFA aerosol inhaler 2 puff Inhalation Q4H PRN (Reason: shortness of breath) Qty: 1 RF: 6 finasteride 5 mg tablet 5 mg PO DAILY RF: 0 amlodipine [Norvasc] 5 mg tablet 2.5 mg PO DAILY RF: 0 ciprofloxacin HCl 250 mg tablet 250 mg PO BID RF: 0 ferrous sulfate [iron] 325 mg (65 mg iron) Tablet 325 mg PO DAILY RF: 0 cholecalciferol (vitamin D3) 50 mcg (2,000 unit) capsule 2,000 unit PO DAILY RF: 0 Referrals / Follow Up: Bia Dwyer PA [Primary Care Provider] - Carlo Scott MD [STAFF PHYSICIAN] -
[2021-07-11] MEDS: amLODIPine 5 MG Tablet PO (08:35)
[2021-07-11] MEDS: Cholecalciferol (VIT D3) 25 MCG TABLET (1,000 UNITS) 50 MCG PO (08:36)
[2021-07-11] MEDS: Finasteride 5 MG Tablet PO (08:36)
[2021-07-11] MEDS: Lisinopril 40 MG Tablet PO (08:37)
[2021-07-11] MEDS: Ferrous Sulfate 325 MG Tablet PO (08:37)
[2021-07-11] MEDS: Ciprofloxacin 250 MG Tablet PO (08:37)
--- NOTE | 2021-07-11 10:23 | CASEMGMT ---
Addendum entered by Donna Gray 07/11/21 12:46: SW did explain to pt earlier the Medicare shelter benefit and that he would be covered at 100% for the first 20 days, and starting day 21 there is a copay, that his secondary may cover. MARISA explained this to the daughter as well. JOSE C Malone Addendum entered by Donna Gray 07/11/21 12:01: SW updated APS that pt is going to [facility] and pt's went home w/daughter yesterday from hospital. JOSE C Malone Addendum entered by Donna Gray 07/11/21 11:24: [facility] can take pt, would prefer he come from here, but would take pt from home also. They are familiar w/pt as pt's was there in September. SW did make Sandra aware of the pt trying to care for but that according to family this is not going well. Sandra states understanding, had spoken w/pt multiple times when pt's was there. She is fine w/family bringing pt to the facility. She states also their visitation is restricted at present as they have one COVID pt at present. SW spoke again w/pt, he spoke w/[facility] and is now agreeable to go to [facility] from here, may just stop at home to belt picker some things. SW did let pt know the visitation is restricted, pt states understanding and is okay w/this. SW explained will let both daughter Jennie and friend Luis know the plan. Pt in agreement w/this. SW called rena Schneider, let her know pt is now agreeable to go to [facility] from here. SW also called Gene to let her know pt can go to [facility], and will go there from here. SW did let Gene know pt may want to stop home to get a few things, but that Gene can bring pt over. She states will be here about 5pm to take pt. SW let physician know, will fax over discharge instructions once completed. JOSE C Malone Original Note: Pt's friend left a message for MARISA, Luis Gillis, stating that she is picking up pt and wondering if pt is ready for discharge today. MARISA called rena Schneider, she confirms Gene is to belt picker pt today. We spoke about discharge plan for pt, and about his . Pt's is staying w/daughter Jennie at present. Jennie was hopeful pt may agree to going somewhere for rehab, states he has two flights of steps into his home. SW explained will speak w/him about this. SW spoke w/pt about anticipated discharge plans. Pt confirmed Gene is picking up pt today, is okay w/SW speaking w/her. SW spoke w/pt about going home vs going somewhere for rehab. Pt states would like to go to [facility], but after going home first. 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 SW explained to pt multiple times it may be better to go straight to [facility] from here, if he needs rehab. SW asked if someone may be able to bring the computer to him, pt states no, the computer is too big, he needs to get a laptop. Pt states he cannot go straight from here to [facility], states, unless you have $5000 to pay my bills. Pt states there is no lineup of people to get into [facility] and he will be able to go from home. SW again attempted to educate pt that going to [facility] from home will be more difficult as there is nobody to write orders, and help organize it. Pt states, I know, you have told me five times. SW offered to at least contact [facility] for pt, he is agreeable to this. SW called [facility], faxed initial information. SW will speak w/pt again once SW speaks to [facility]. JOSE C Malone
--- NOTE | 2021-07-11 10:26 | CASEMGMT ---
STEPHANIE CM NOTE: Pt provided w/script for OP therapy per his request, in the event pt decides to do OP therapy rather than going to [facility]. See MARISA Thompson, note from this AM 07/11. Leopoldo WERNER RN CM
--- NOTE | 2021-07-11 11:45 | TREXTCAR_ITS ---
Diet 07/08/21 00:14 Diet: Regular - General Type of Dietary Supplement:: Ensure Compact Is pt able to select menu?: Yes Diet Comments: 4oz w/ dinner Wound(s) bilateral buttocks: Wound Type: Abrasion Problem/Diagnosis (1) Hematuria: Status: Acute Allergies/Procedures Done in Hospital Allergies No Known Allergies Allergy (Verified 06/23/21 15:24) Type of Care/Length of Stay Estimated LOS: More Than 30 Days Type of Care Needed: Skilled Rehab Potential: Good Prognosis: Good Additional Orders/Day of Discharge Day of Discharge: 07/11/21 Dietary and Speech Recommendations Dietitian Recommendations/Changes: continue regular diet; will add 4oz ensure compact w/ dinner for additional calories/protein if consumed. Discharge Plan Admission Admit Date/Time: 07/07/21 22:58 Primary Reason for Your Visit: Gross hematuria and bleeding Attending Provider: Carlo Scott Primary Care Provider: Bia Dwyer Consulting Providers: Micheline Alston ; Arti Calloway ; Ray Peacock ; Luis Carlos Archer Discharge Orders/Prescriptions Prescriptions: Continued hydrocodone-acetaminophen [[place]] 5-325 mg tablet 0.5 - 1 tab PO Q4H PRN PRN (Reason: Pain) RF: 0 lisinopril 40 mg tablet 40 mg PO DAILY RF: 0 ascorbic acid (vitamin C) 500 mg capsule 500 mg PO QDAY RF: 0 vitamin B complex tablet 1 tab PO DAILY RF: 0 cyanocobalamin (vitamin B-12) 1,000 mcg/mL solution 100 mcg IM QMONTH RF: 0 pravastatin 10 mg tablet 30 mg PO DAILY RF: 0 dicyclomine 10 mg capsule 10 - 20 mg PO BID RF: 0 albuterol sulfate 90 mcg/actuation HFA aerosol inhaler 2 puff Inhalation Q4H PRN (Reason: shortness of breath) Qty: 1 RF: 6 finasteride 5 mg tablet 5 mg PO DAILY RF: 0 amlodipine [Norvasc] 5 mg tablet 2.5 mg PO DAILY RF: 0 ciprofloxacin HCl 250 mg tablet 250 mg PO BID RF: 0 ferrous sulfate [iron] 325 mg (65 mg iron) Tablet 325 mg PO DAILY RF: 0 cholecalciferol (vitamin D3) 50 mcg (2,000 unit) capsule 2,000 unit PO DAILY RF: 0 Referrals / Follow Up: Carlo Scott MD [STAFF PHYSICIAN] - Bia Dwyer PA [Primary Care Provider] - Disposition Disposition (needs filled in before D/C Order can be placed): [facility]
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
[2021-07-11 13:14] LABS: Hemoglobin 8.6 g/dL (13.0-16.5)
--- NOTE | 2021-07-11 13:33 | CASEMGMT ---
Addendum entered by Donna Gray 07/11/21 16:28: Pt's discharge may be cancelled. MARISA called Sandra at [facility] to let her know. SW also put a green sheet on the chart in the event pt's discharge is cancelled. RN to call [facility] if discharge is cancelled. JOSE C Malone Original Note: Sandra from [facility] called to ask pt's C-Pap settings. SW spoke w/RN, pt is not on Cpap here. SW spoke w/pt, he states that he is to be getting a new machine from [facility] and asked if it could be delivered to [facility], asked SW to call. SW called [facility], the process has just been started and they do not have everything to get it ordered. She did tell SW the setting is a pressure of 14. SW let Sandra know the above information, she thought that there was additional information needed for the settings, she will have the respiratory therapist call [facility] directly if more information is needed. SW let pt know also did call [facility] but they are just starting the process to get the new machine ordered. Pt states he will bring his machine from home. MARISA let Sandra at [facility] know this information. JOSE C Malone
--- NOTE | 2021-07-11 16:35 | NURSING ---
sanchez catheter placed per MD order. catheter plugged with clot with first attempt. catheter reinserted with minimal resistance and irrigated at that time. small amount of bright red blood noted. no further urine noted. attempted to irrigate further without further urine noted. unable to irrigate any further clots noted. will consult with MD. bladder scanned after irrigation showed 936cc.
--- NOTE | 2021-07-11 17:09 | PN_ITS ---
Progress Note sanchez removed for void trial but could not void so nurses place sanchez but had problems so came up removed prior sanchez placed 16 fr sanchez [place] band tip over wire flush out clots, secured cath, leave a cath in place, do not remove , okay to flush here and at prison follow up in urology in 2 weeks.
--- NOTE | 2021-07-11 19:38 | NURSING ---
report called to [facility] for patient discharge.
== END 2021-07-11 20:45 | disposition skilled nursing facility (03) | DRG 699 ==
PROVIDERS: Internal Medicine; Admitting Provider Urology; PCP Physician Assistant; Visit Provider Urology
PROC: 0TJB8ZZ Inspection of Bladder, Via Natural or Artificial Opening Endoscopic (ICD-10-PCS; CPT 52000; principal; 2021-07-07 11:35)
DX: N32.89 Other specified disorders of bladder (principal); D62 Acute posthemorrhagic anemia; E44.0 Moderate protein-calorie malnutrition; R31.0 Gross hematuria; N40.0 Benign prostatic hyperplasia without lower urinary tract symptoms; Z68.38 Body mass index [BMI] 38.0-38.9, adult; I10 Essential (primary) hypertension; E66.9 Obesity, unspecified; E78.5 Hyperlipidemia, unspecified; E53.8 Deficiency of other specified B group vitamins; Z82.49 Family history of ischemic heart disease and other diseases of the circulatory system; Z86.73 Personal history of transient ischemic attack (TIA), and cerebral infarction without residual deficits; Z90.79 Acquired absence of other genital organ(s); Z87.11 Personal history of peptic ulcer disease; Z85.528 Personal history of other malignant neoplasm of kidney; Z66 Do not resuscitate
CPT/HCPCS: 36415; 80048; 82962; 83735; 85014; 85018; 85025; 86850; 86900; 86901; 86920; 86922; 87426; 87493; 93005; 94640; 97110; 97116; 97162; 97802; J7030; J7040; P9016; A4216

== ENCOUNTER 2022-01-15 10:17 | Outpatient (CLI) | payer MEDICARE, OTHER, SELFPAY ==
--- NOTE | 2022-01-15 10:23 | ECHOD_ITS ---
Reason For Study: HYPERTENSION Procedure This was a 2D Doppler, Color Flow transthoracic echocardiogram. Exam performed in department. Left Ventricle Normal LV size. Left ventricular systolic function is normal. The estimated ejection fraction is 60 %. Stage 1 diastolic dysfunction. No regional wall motion abnormalities noted. Right Ventricle Normal RV size. Normal systolic function. Atria The left atrium is mildly enlarged. Normal right atrium. Mitral Valve Normal mitral valve. Tricuspid Valve Normal tricuspid valve. Mild tricuspid valve insufficiency. Pulmonary artery systolic pressure is 25 mmHg. Aortic Valve Trisinus/trileaflet aortic valve. Pulmonic Valve Normal pulmonic valve. Great Vessels Normal aortic root. The pulmonary artery is normal size. Normal inferior vena cava. Pericardium/Pleural No pericardial effusion. MMode/2D Measurements & Calculations LVIDd: 4.6 cm IVSd: 1.1 cm Ao root diam: 4.0 cm LVIDs: 3.0 cm LVPWd: 1.1 cm RVDd: 3.2 cm FS: 36.0 % LAV(MOD-bp): 80.8 ml LA A4 area: 21.5 cm2 LA dimension(2D): 3.4 cm LAV(MOD-bp) Indexed: 40.5 ml/m2 LAV(MOD-sp2): 72.5 ml LAV(MOD-sp4): 72.2 ml Time Measurements MV dec time: 0.29 sec Doppler Measurements & Calculations MV E max cyrus: 57.2 cm/sec Lat Peak E' Cyrus: 6.6 cm/sec Med Peak E' Cyrus: 5.3 cm/sec MV A max cyrus: 77.5 cm/sec E/E' lat: 8.6 E/E' med: 10.8 MV E/A: 0.74 Ao V2 max: 99.2 cm/sec LV V1 max: 82.3 cm/sec PA V2 max: 88.9 cm/sec Ao max P.9 mmHg LV V1 max P.7 mmHg TR max cyrus: 229.0 cm/sec TR max P.0 mmHg ECHO/Echo Complete Interpretation Summary Normal LV size. Left ventricular systolic function is normal. The estimated ejection fraction is 60 %. The left atrium is mildly enlarged. Stage 1 diastolic dysfunction. Pulmonary artery systolic pressure is 25 mmHg. Ordering Physician: Gilmar Marcial Referring Physician: Bia Dwyer Performed By: Kaitlynn Hui, [place], RVT
== END 2022-01-15 23:59 | disposition home or self-care (01) ==
LOC: CVS 10:19
PROVIDERS: PCP Physician Assistant; Referring Provider Internal Medicine Cardiovascular Disease; Visit Provider Internal Medicine Cardiovascular Disease
DX: R03.0 Elevated blood-pressure reading, without diagnosis of hypertension (principal); C64.1 Malignant neoplasm of right kidney, except renal pelvis; E11.9 Type 2 diabetes mellitus without complications; I95.9 Hypotension, unspecified; I10 Essential (primary) hypertension; E78.5 Hyperlipidemia, unspecified; D50.0 Iron deficiency anemia secondary to blood loss (chronic); J45.909 Unspecified asthma, uncomplicated
CPT/HCPCS: 93306; 93788

== ENCOUNTER 2022-03-04 09:52 | Inpatient (IN) | payer MEDICARE, OTHER, SELFPAY ==
[2022-03-04] VITALS (9 sets, daily range): BP systolic 95–142; BP diastolic 59–80; PULSE 58–76; RESP 16–18; TEMP 36.6–37.5; O2SAT 95–99; BMI 27.3
--- NOTE | 2022-03-04 09:50 | PCM.HP.STD ---
HPI - General General Date of Admission: 03/04/22 HPI Narrative LIZ ALTMAN, is a 81 M who presents with gross hematuria from outlying hospital the nurses have been having difficulty with irrigating the catheter and retention of urine plan is to admit the patient taken directly to surgery for cystoscopy be evacuation of blood clots cauterization of bleeding possible TURP possible TURBT depending on the findings in surgery. [facility] Medical History Allergic rhinitis Anemia Anxiety Arthritis Asthma Back pain BPH (benign prostatic hyperplasia) Bronchitis C. difficile diarrhea Cancer of right kidney Carpal tunnel syndrome, bilateral CKD (chronic kidney disease) Cough CPAP (continuous positive airway pressure) dependence Diabetes Essential hypertension Former smoker GERD (gastroesophageal reflux disease) Hearing loss, left Hearing loss, right Hematuria Hemorrhoids History of colon polyps Hyperlipidemia Iron deficiency anemia due to chronic blood loss Obstructive sleep apnea Otitis media, right Pernicious anemia Post-nasal drip Prostatitis PUD (peptic ulcer disease) RLS (restless legs syndrome) Rosacea Sinusitis Sleep apnea Thrombocytopenia Type 2 diabetes mellitus URI (upper respiratory infection) Home Medications albuterol sulfate 90 mcg/actuation aerosol inhaler 2 puff INHALATION Q4H PRN #1 device 10/10/18 [Rx Last Taken 07/06/21] ascorbic acid (vitamin C) 500 mg capsule 500 mg PO QDAY cap 10/10/18 [History Last Taken 07/06/21] cyanocobalamin (vitamin B-12) 1,000 mcg/mL injection solution 100 mcg IM QMONTH 10/10/18 [History Last Taken 06/24/21] dicyclomine 10 mg capsule 10 - 20 mg PO BID cap 10/10/18 [History Last Taken Unknown] pravastatin 10 mg tablet 30 mg PO DAILY tab 10/10/18 [History Last Taken 07/06/21] vitamin B complex 1 tab PO DAILY 10/10/18 [History Last Taken 07/06/21] cholecalciferol (vitamin D3) 2,000 unit PO DAILY 07/08/21 [History Last Taken Unknown] ferrous sulfate [iron] 325 mg PO DAILY 07/08/21 [History Last Taken Unknown] amlodipine 10 mg tablet 10 mg PO DAILY #90 tab 02/13/22 [Rx Last Taken Unknown] Allergy/AdvReac Type Severity Reaction Status Date / Time No Known Allergies Allergy Verified 02/13/22 11:11 Family History Father CAD (coronary artery disease) Hypertension Brother CAD (coronary artery disease) Mother Hypertension CVA (cerebral vascular accident) Surgical History H/O bilateral inguinal hernia repair History of partial nephrectomy (2012) History of transurethral resection of prostate lens replacement right eye Social History Smoking Status: Never smoker alcohol intake: former
[2022-03-04] MEDS: Lactated Ringers 1,000 ML 15 ML IV (10:40)
[2022-03-04] MEDS: Cefazolin 2 GM in 0.9% Normal Saline 100 ML IV (11:18)
--- NOTE | 2022-03-04 11:51 | OP.PCM_ITS ---
Report of Operation Date of Procedure: 03/04/22 Pre-Operative Diagnosis: Gross hematuria and prostatic bleeding Post-Operative Diagnosis: The same Surgery/Procedure Performed:: Cystoscopy evacuation of blood clots and cauterization of the prostate for bleeding Description of Surgical Findings:: This is an 81-year-old gentleman transferred to the hospital emergently from an outside emergency room they had a hard time getting a catheter and he has been bleeding and he was presented to the floor we was transferred down immediately we took him back to the operating room. The catheter was removed I then went into the bladder with a 24 Citizen [place] continuous- flow resectoscope had a significant amount of blood clots in the bladder these were evacuated out I then pulled back to the prostate he had a heavy regrowth of the prostate a lot of tissue a lot of sanguinous veins these were cauterized extensively I did not do a TURP just try to control the situation at this point to cauterize the prostate extensively got the bleeding stopped and then put a 22 Citizen [place] catheter into the bladder and continuous irrigation we will start him on Proscar its possible may have to bring him back to the hospital once the bleeding stopped for a TURP in the future Surgeon: jan Type of Anesthesia: General Drains: 22fr [address] way Admit VTE Documentation VTE Present on Admission: No VTE Mechan Device Prophylaxis: SCD's VTE Pharm Prophylaxis ordered?: No
[2022-03-04] MEDS: Pravastatin 20 MG Tablet 30 MG PO (21:57)
[2022-03-05 03:00] VITALS: BP 119/70; PULSE 71; RESP 16; TEMP 37.1; O2SAT 95
[2022-03-05] MEDS: Lactated Ringers 1,000 ML 15 ML IV (03:38)
[2022-03-05 06:40] LABS: Bedside Glucose 104 mg/dL (74-106)
[2022-03-05 07:42] VITALS: BP 118/78; PULSE 72; RESP 16; TEMP 36.8; O2SAT 95
--- NOTE | 2022-03-05 07:46 | PCM.PN.BLA ---
Progress Note urine clear v large prostate just cauterized bleeding home with proscar follow up in outpatient 2 -3 weeks
--- NOTE | 2022-03-05 07:48 | PCM.DC ---
Discharge Instructions Diet Discharge Diet: No restrictions Activity Discharge Activity: Return to Normal Activity and May Not Drive (while taking narcotic pain medications.) Dressing / Incision Call your doctor if you observe: Fever of 101 or Higher Follow Up Care Please Follow Up With: Carlo Scott MD When: Call [phone] for an appointment Test Results: Test results from this visit will be discussed in further detail at your follow-up appointment, if applicable. Discharge Plan Admission Admit Date/Time: 03/04/22 09:52 Attending Provider: Carlo Scott Primary Care Provider: Bia Dweyr Discharge Orders/Prescriptions Prescriptions: New ciprofloxacin HCl [Cipro] 500 mg tablet 500 mg PO BID Qty: 10 RF: 0 finasteride [Proscar] 5 mg tablet 5 mg PO DAILY Qty: 30 RF: 5 Continued ascorbic acid (vitamin C) 500 mg capsule 500 mg PO QDAY RF: 0 vitamin B complex tablet 1 tab PO DAILY RF: 0 cyanocobalamin (vitamin B-12) 1,000 mcg/mL solution 100 mcg IM QMONTH RF: 0 pravastatin 10 mg tablet 20 mg PO DAILY RF: 0 dicyclomine 10 mg capsule 10 mg PO BID RF: 0 albuterol sulfate 90 mcg/actuation HFA aerosol inhaler 2 puff Inhalation Q4H PRN (Reason: shortness of breath) Qty: 1 RF: 6 amlodipine 10 mg tablet 10 mg PO DAILY Qty: 90 RF: 3 Hold Instructions: hold ferrous sulfate [iron] 325 mg (65 mg iron) Tablet 325 mg PO DAILY RF: 0 cholecalciferol (vitamin D3) 50 mcg (2,000 unit) capsule 2,000 unit PO DAILY RF: 0 Referrals / Follow Up: Carlo Scott MD [STAFF PHYSICIAN] - Bia Dwyer PA [Primary Care Provider] - Disposition Discharge Orders: Discharge Patient (Routine); Ordered 03/05/22 Ordered By: Dr. Carlo Scott
--- NOTE | 2022-03-05 07:48 | PCM.DC.SUM ---
Providers Date of Admission: 03/04/22 Primary Care Physician: PADMINI Doty Reason For Visit: GROSS HEMATURIA Medications at Discharge Home Medications albuterol sulfate 90 mcg/actuation aerosol inhaler 2 puff INHALATION Q4H PRN #1 device 10/10/18 ascorbic acid (vitamin C) 500 mg capsule 500 mg PO QDAY cap 10/10/18 cyanocobalamin (vitamin B-12) 1,000 mcg/mL injection solution 100 mcg IM QMONTH 10/10/18 dicyclomine 10 mg capsule 10 mg PO BID cap 10/10/18 pravastatin 10 mg tablet 20 mg PO DAILY tab 10/10/18 vitamin B complex 1 tab PO DAILY 10/10/18 cholecalciferol (vitamin D3) 2,000 unit PO DAILY 07/08/21 ferrous sulfate [iron] 325 mg PO DAILY 07/08/21 amlodipine 10 mg tablet 10 mg PO DAILY #90 tab 02/13/22 ciprofloxacin HCl [Cipro] 500 mg PO BID #10 tab 03/05/22 finasteride [Proscar] 5 mg PO DAILY #30 tab 03/05/22 Hospital Course Summary of Care Provided Hospital Course: taken to surgery for protate bleeding v large prostate, will need TURP home today after void, d/c sanchez rx cipro and rx proscar Weight / BMI Weight Weight: 83.9 kg Body Mass Index (BMI) 27.3 ABG / Lab / Microbiology Data Laboratory: Laboratory Results - last 24 hr 03/05/22 06:33: POC Glucose 104 D/C Instructions Discharge Diet: No restrictions Call your doctor if you observe: Fever of 101 or Higher Please Follow Up With: Carlo Scott MD When: Call [phone] for an appointment Meaningful Use Info Meaningful Use Diagnoses (Choose all that apply): None applicable Discharge Plan Admission Admit Date/Time: 03/04/22 09:52 Attending Provider: Carlo Scott Primary Care Provider: Bia Dwyer Discharge Orders/Prescriptions Prescriptions: New ciprofloxacin HCl [Cipro] 500 mg tablet 500 mg PO BID Qty: 10 RF: 0 finasteride [Proscar] 5 mg tablet 5 mg PO DAILY Qty: 30 RF: 5 Continued ascorbic acid (vitamin C) 500 mg capsule 500 mg PO QDAY RF: 0 vitamin B complex tablet 1 tab PO DAILY RF: 0 cyanocobalamin (vitamin B-12) 1,000 mcg/mL solution 100 mcg IM QMONTH RF: 0 pravastatin 10 mg tablet 20 mg PO DAILY RF: 0 dicyclomine 10 mg capsule 10 mg PO BID RF: 0 albuterol sulfate 90 mcg/actuation HFA aerosol inhaler 2 puff Inhalation Q4H PRN (Reason: shortness of breath) Qty: 1 RF: 6 amlodipine 10 mg tablet 10 mg PO DAILY Qty: 90 RF: 3 Hold Instructions: hold ferrous sulfate [iron] 325 mg (65 mg iron) Tablet 325 mg PO DAILY RF: 0 cholecalciferol (vitamin D3) 50 mcg (2,000 unit) capsule 2,000 unit PO DAILY RF: 0 Referrals / Follow Up: Carlo Scott MD [STAFF PHYSICIAN] - Bia Dwyer PA [Primary Care Provider] - Disposition Discharge Orders: Discharge Patient (Routine); Ordered 03/05/22 Ordered By: Dr. Carlo Scott
[2022-03-05] MEDS: Acetaminophen 325 MG Tablet 650 MG PO ×2 (07:58→20:54)
[2022-03-05] MEDS: amLODIPine 10 MG Tablet PO (08:13)
[2022-03-05] MEDS: Ferrous Sulfate 325 MG Tablet PO (08:13)
[2022-03-05] MEDS: Finasteride 5 MG Tablet PO (08:14)
[2022-03-05] MEDS: Menthol/Lanolin/Calamine/Znox 113 GM Tube 1 APPLIC TOPICAL ×3 (08:17→22:15)
--- NOTE | 2022-03-05 10:00 | CASEMGMT ---
RN SIMONA STRIPPING MACHINE OPERATOR CM to room to meet with patient for initial transition planning/care coordination assessment. STEPHANIE JARVIS introduced self and role at [facility]. Pt voices understanding and consents to assessment at this time. Pt resting in bed in no distress at this time. Pt is A/O at this time and answers all questions appropriately. Care providers, pharmacy, and demographics verified/updated at this time. PCP: PADMINI Doty Specialists: Dr Marcial--cardiology, Dr Scott-urology Preferred Pharmacy: [facility] in [place] Insurance: [facility], AARP Prescription Benefit: Yes Living Will/HPOA: Has both LW and HPOA, who is Jv Gillis LNOK: Daughter, Jennie Winters. Pt's has Alzheimer's dementia and resides @ a fpc near [place], [place]. Pt states he goes to see her 2 x's/week. Living Arrangements: Lives alone in apartment w/12 steps to get in. Independent w/ADL's and IADL's. States he does not feel safe to get into shower on his own, so he typically sponge-bathes @ the sink. Pt manages his own medications and appts. Transportation: Pt states drives self. He reports all of his family live near [place] and he does not have anyone that can take him home @ d/c. Pt made aware of [facility] Van transportation and he states he would like to utilize that. DME: States has the following DME: tub bench, BP machine. Pt has a walker, but does not use at baseline. Pt states no need for further DME at this time. HHC/SNF: Hx of going to [facility] and then HHC. Pt currently set up to go to [facility] for OP therapy. Pt wishes to return home and states has no concerns with going home at time of discharge. He denies need for HHC and would like to resume OP therapy @ [facility]. CM to follow for any further discharge planning/needs. Pt voices no further concerns/needs at this time. Advised pt to ask for CM if any further questions/concerns/needs arise. Voices understanding. PLAN: Home Leopoldo WERNER RN, CM
[2022-03-05 11:26] VITALS: BP 112/65; PULSE 64; RESP 16; TEMP 36.6; O2SAT 98
[2022-03-05 11:26] LABS: Bedside Glucose 157 mg/dL (74-106)
[2022-03-05 18:16] VITALS: BP 114/63; PULSE 74; RESP 16; TEMP 36.5; O2SAT 100
--- NOTE | 2022-03-05 18:23 | PCM.PN.BLA ---
Progress Note Patient still cannot urinate plan to add him on for surgery for tomorrow for a TURP for retention of urine. We will hold on discharge
[2022-03-05] MEDS: Pravastatin 20 MG Tablet 30 MG PO (22:18)
[2022-03-06] VITALS (11 sets, daily range): BP systolic 73–150; BP diastolic 49–99; PULSE 51–79; RESP 16; TEMP 36–37.1; O2SAT 97–100; BMI 27.3; BMI 28.1
--- NOTE | 2022-03-06 | PROS_PTH ---
PATIENT: LIZ ALTMAN LOC: [facility] U#:[id number] AGE/SX: 81/M ROOM: [facility] RE03/04/[address]: Dr. Carlo Scott MD : [id number] BED: 1 DIS: 03/09/2022 SPEC #: [id number] RECD: 03/06/22 17:07 STATUS: ALEXY SHRESTHA #: [id number] NELL: 03/06/22 00:[address]: Carlo Scott DEPT: SURGICAL PATHOLOGY RECD BY: Ganesh Manning ENTERED: 03/09/22 08:29 SP TYPE: TURP OTHR DR: PADMINI Doty Tissues: Prostate, NOS Procedures: Surgery Specimen Level IV HEADER OPERATION: Cysto, TUR prostate, Olympus PRE-OP DIAGNOSIS: BPH with obstruction TISSUE SUBMITTED: Prostate chips MICROSCOPIC DIAGNOSIS Prostate chips, transurethral resection: Benign prostatic hyperplasia, glandular and stromal type. SJ:vin 03/10/2022 MICROSCOPIC DESCRIPTION Slides are reviewed. GROSS DESCRIPTION Received is one container labeled with the patient's name and designated prostate chips. The specimen consists of multiple irregular fragments of pink-khan, rubbery, soft tissue that in aggregate weigh 21.8 gm and measure in aggregate 8 x 6.5 x 2.5 cm. Numerous blood clots are also noted. Tile Picker tissue is submitted in ten cassettes. / FELY:vin 03/09/2022 TC:5 CPT: 33581
--- NOTE | 2022-03-06 04:11 | EKG12_ITS ---
Test Reason : PRE OP Blood Pressure : / mmHG Vent. Rate : 075 BPM Atrial Rate : 075 BPM P-R Int : 202 ms QRS Dur : 088 ms QT Int : 376 ms P-R-T Axes : 067 051 060 degrees QTc Int : 419 ms Sinus rhythm with occasional Premature ventricular complexes Otherwise normal ECG When compared with ECG of 07-JUL-2021 23:50, Premature ventricular complexes are now Present Confirmed by DANIA MONSIVAIS, FRANCIA ([id number]), graphic editor MIRIAN ANGELES ([id number]) on 03/09/2022 1:07:13 PM Referred By: Carlo Scott Confirmed By:FRANCIA NAJERA MD
[2022-03-06 05:26] LABS: Absolute Lymphocyte Count 1.52 X10^3/uL (0.83-4.51); Absolute Neutrophil Count 3.8 X10^3/uL (2.0-7.7); Basophil# 0.01 X10^3/uL; Basophil% 0.2 % (0-1); Eosinophil# 0.09 X10^3/uL; Eosinophils% 1.5 % (0-5); Hematocrit 39.9 % (40-54); Hemoglobin 13.4 g/dL (13.0-16.5); Lymphocyte # 1.52 X10^3/ul (0.83-4.51); Lymphocyte % 25.3 % (19-41); Mean Corp Hgb Conc 33.6 g/dL (32-36); Mean Corpuscular Hgb 31.5 pg (27.0-32.0); Mean Corpuscular Volume 93.9 fL (80-94); Monocyte# 0.55 X10^3/uL; Monocyte% 9.2 % (0-10); NRBC Flagged by Analyzer 0 % (0-5); Neutrophil # 3.81 X10^3/uL (2.7-7.7); Neutrophil % 63.3 % (47-70); Platelet Count 122 K/mm3 (150-450); RBC Distribution Width CV 13.1 % (11.6-14.6); RBC Distribution Width SD 44.9 fl (35.1-43.9); Red Blood Count 4.25 M/mm3 (4.6-6.2)
[2022-03-06 05:42] LABS: International Normalized Ratio 1.1; Prothrombin Time (Protime)PT. 13.7 SECONDS (11.7-14.9)
[2022-03-06 05:43] LABS: Partial Thromboplast Time 34.4 Seconds (24.1-36.2)
[2022-03-06 06:09] LABS: Anion Gap 5 (5-15); BUN 25 mg/dL (7-18); BUN/Creat Ratio 27.1 RATIO (10-20); Calcium,Total 9.1 mg/dL (8.5-10.1); Chloride 107 mmol/L (98-107); Creatinine, Serum 0.92 mg/dL (0.70-1.30); EST Glomerular Filtration Rate 83 mL/min (>60); Est Glom Filt Rate - Afr Amer 100 mL/min (>60); Estimated Creatinine Clearance 58.86 ml/min; Glucose 109 mg/dL (74-106); Potassium 4.2 mmol/L (3.5-5.1); Sodium Level 137 mmol/L (136-145)
[2022-03-06 07:40] LABS: Hemoglobin A1c 5.4 % (3.8-5.6)
[2022-03-06] MEDS: amLODIPine 10 MG Tablet PO (10:31)
[2022-03-06] MEDS: Ferrous Sulfate 325 MG Tablet PO (10:31)
[2022-03-06] MEDS: Finasteride 5 MG Tablet PO (10:31)
[2022-03-06] MEDS: Menthol/Lanolin/Calamine/Znox 113 GM Tube 1 APPLIC TOPICAL ×3 (10:36→20:23)
[2022-03-06 14:41] LABS: Bedside Glucose 116 mg/dL (74-106)
[2022-03-06] MEDS: 0.9% Normal Saline 1,000 ML 15 ML IV (16:31)
--- NOTE | 2022-03-06 16:53 | OP.PCM_ITS ---
Report of Operation Date of Procedure: 03/06/22 Pre-Operative Diagnosis: bph with recurrent bleeding Post-Operative Diagnosis: same Surgery/Procedure Performed:: Transurethral resection of the prostate Description of Surgical Findings:: In the preoperative setting I discussed with the patient how the surgery would be done with expect afterwards. We discussed how a prostate resection is done and we discussed the risk of the surgery i ncluding, bleeding, infection, retrograde ejaculation, changes with ejaculation or intercourse,. We discussed the possibility that the resection of the prostate may not alleviate his urinary symptoms. We discussed the small risk of developing scar tissue along the urethral channel and strictures. We also discussed the chance of the prostate could grow back and he may need further surgery or treatment in the future for prostate problems. Patient was taken back to the operating room, timeout procedure was performed, he was identified and marked and placed on the operating room table. He und erwent general anesthesia. He was placed in dorsolithotomy position. Penis and testicles were prepped and draped in usual sterile fashion. Went into the bladder using the visual obturator with a resectoscope. He did have very stretch out atonic looking bladder form chronic outlet obstruction. Once inside the bladder identified the right and left ureteral orifice. I then identified the prostate and the anatomy of the prostate. I marked out the area of the sphincter and the verumontanum was identified. I then proceeded with the prostate resection first resected the median lobe. And then resected the right lobe of the prostate. Then to resect the left lobe of the prostate. I then resected the apical tissue of the prostate. This was a complete resection of all obstructive tissue to improve voiding and relieve obstruction. I then made sure that there was no injury to the sphincter or the verumontanum was still intact. At the end of the resection all the chips were Ellik out of the bladder. I then identified the left and right ureteral orifice and these were confirmed to be in good position and effluxing and not injured. The resectoscope was removed, a 22 [place] catheter was placed into the bladder on continuous irrigation. And the urine was fairly light pink color and draining normally. He was taken back to the PACU in good condition. CPT 66052 Surgeon: jan Type of Anesthesia: General Drains: 22fr [address] way Admit VTE Documentation VTE Present on Admission: No VTE Mechan Device Prophylaxis: SCD's VTE Pharm Prophylaxis ordered?: No
[2022-03-06 17:15] LABS: Bedside Glucose 122 mg/dL (74-106)
[2022-03-06] MEDS: Ibuprofen 400 MG Tablet PO (18:49)
[2022-03-06] MEDS: Pravastatin 20 MG Tablet 30 MG PO (20:22)
[2022-03-06] MEDS: Acetaminophen 325 MG Tablet 650 MG PO (22:52)
[2022-03-07 00:45] VITALS: BP 114/68; PULSE 66; RESP 14; TEMP 36.6; O2SAT 98
[2022-03-07] MEDS: Acetaminophen 325 MG Tablet 650 MG PO ×2 (05:02→14:56)
[2022-03-07 06:00] VITALS: BP 110/64; PULSE 65; RESP 14; TEMP 36.8; O2SAT 97
[2022-03-07 08:02] VITALS: BP 123/63; PULSE 75; RESP 16; TEMP 37.2; O2SAT 98
[2022-03-07] MEDS: Ferrous Sulfate 325 MG Tablet PO (08:15)
[2022-03-07] MEDS: Finasteride 5 MG Tablet PO (08:15)
[2022-03-07] MEDS: Menthol/Lanolin/Calamine/Znox 113 GM Tube 1 APPLIC TOPICAL ×4 (08:15→21:12)
[2022-03-07] MEDS: amLODIPine 10 MG Tablet PO (08:15)
[2022-03-07 12:56] VITALS: BP 114/60; PULSE 77; RESP 16; TEMP 37.1; O2SAT 98
[2022-03-07 16:21] VITALS: BP 112/67; PULSE 75; RESP 12; TEMP 37; O2SAT 96
[2022-03-07] MEDS: Cefazolin 1 GM/50 ML BAG IV (21:13)
[2022-03-07] MEDS: Pravastatin 20 MG Tablet PO (21:14)
[2022-03-07 21:20] VITALS: BP 120/66; PULSE 72; RESP 18; TEMP 36.7; O2SAT 98
[2022-03-07] MEDS: 0.9% Saline Lock 10 ML Syringe IV (21:29)
[2022-03-08 03:00] VITALS: BP 121/77; PULSE 75; RESP 16; TEMP 37.3; O2SAT 96
[2022-03-08] MEDS: Acetaminophen 325 MG Tablet 650 MG PO ×2 (03:22→14:38)
[2022-03-08] MEDS: Cefazolin 1 GM/50 ML BAG IV ×3 (05:32→22:52)
[2022-03-08] MEDS: 0.9% Saline Lock 10 ML Syringe IV ×3 (05:33→23:25)
[2022-03-08 08:05] VITALS: BP 124/80; PULSE 77; RESP 16; TEMP 36.6; O2SAT 96
[2022-03-08] MEDS: Ferrous Sulfate 325 MG Tablet PO (08:14)
[2022-03-08] MEDS: Finasteride 5 MG Tablet PO (08:14)
[2022-03-08] MEDS: Menthol/Lanolin/Calamine/Znox 113 GM Tube 1 APPLIC TOPICAL ×4 (08:14→22:11)
[2022-03-08] MEDS: amLODIPine 10 MG Tablet PO (08:14)
--- NOTE | 2022-03-08 11:53 | PCM.PN.GU ---
Subjective Subjective urine is finally clear d/c sanchez will take a while to void since has a very stretched out bladder probably home in am. Objective Data Objective Data Vital Signs: Vital Signs Temp Pulse Resp BP Pulse Ox 97.9 F 77 16 124/80 H 96 03/08/22 08:05 03/08/22 08:05 03/08/22 08:05 03/08/22 08:05 03/08/22 08:05 Oxygen Delivery Method Room Air Weight: 83.9 kg Body Mass Index (BMI) 28.1 Intake & Output: Intake and Output for Last 24 Hours 03/06/22 03/07/22 03/08/22 23:59 23:59 23:59 Intake Total 1545 / 1545 1906.5 / 1906.5 730 / 730 Output Total 1100 / 1840 8610 / 9510 4200 / 4200 Balance 445 / -295 -6703.5 / -7603.5 -3470 / -3470 Lab / Micro Data Result Diagrams: 03/06/22 05:00 03/06/22 05:00
[2022-03-08] MEDS: Bisacodyl 10 MG Suppository RC (12:09)
[2022-03-08 14:15] VITALS: BP 117/72; PULSE 72; RESP 16; TEMP 36.7; O2SAT 97
[2022-03-08 17:46] VITALS: BP 127/72; PULSE 78; RESP 12; TEMP 36.8; O2SAT 97
[2022-03-08] MEDS: Pravastatin 20 MG Tablet PO (22:12)
[2022-03-08] MEDS: Docusate Sodium 100 MG Capsule PO (22:12)
[2022-03-08 22:17] VITALS: BP 123/74; PULSE 73; RESP 16; TEMP 36.8; O2SAT 97
--- NOTE | 2022-03-08 22:41 | NURSING ---
Bladder scanned d/t pt only able to void small amounts since catheter removal at noon today. Scanned for [address] Kelley, returned call. Ordered urojet x1 and to place 18 f sanchez catheter.
[2022-03-08] MEDS: Lidocaine Jelly 2% 20 ML Syringe (URO-JET) 1 APPLIC TOPICAL (23:18)
[2022-03-09 04:00] VITALS: BP 100/82; PULSE 77; RESP 18; TEMP 36.9; O2SAT 99
[2022-03-09] MEDS: Cefazolin 1 GM/50 ML BAG IV (05:35)
[2022-03-09] MEDS: 0.9% Saline Lock 10 ML Syringe IV (05:35)
--- NOTE | 2022-03-09 07:35 | PCM.DC.SUM ---
Providers Date of Admission: 03/04/22 Primary Care Physician: PADMINI Doty Reason For Visit: GROSS HEMATURIA Medications at Discharge Home Medications albuterol sulfate 90 mcg/actuation aerosol inhaler 2 puff INHALATION Q4H PRN #1 device 10/10/18 ascorbic acid (vitamin C) 500 mg capsule 500 mg PO QDAY cap 10/10/18 cyanocobalamin (vitamin B-12) 1,000 mcg/mL injection solution 100 mcg IM QMONTH 10/10/18 dicyclomine 10 mg capsule 10 mg PO BID cap 10/10/18 pravastatin 10 mg tablet 20 mg PO DAILY tab 10/10/18 vitamin B complex 1 tab PO DAILY 10/10/18 cholecalciferol (vitamin D3) 2,000 unit PO DAILY 07/08/21 ferrous sulfate [iron] 325 mg PO DAILY 07/08/21 amlodipine 10 mg tablet 10 mg PO DAILY #90 tab 02/13/22 ciprofloxacin HCl [Cipro] 500 mg PO BID #10 tab 03/05/22 finasteride [Proscar] 5 mg PO DAILY #30 tab 03/05/22 Hospital Course Summary of Care Provided Hospital Course: admitted for hematuria, cauterized bleeding, then taken for a TURP could not void after TUrP, found to have weak stretched out bladder home with sanchez for now follow up as an outpatient. Weight / BMI Weight Weight: 83.9 kg Body Mass Index (BMI) 28.1 ABG / Lab / Microbiology Data Result Diagrams: 03/06/22 05:00 03/06/22 05:00 D/C Instructions Discharge Diet: No restrictions Call your doctor if you observe: Fever of 101 or Higher Catheter: Sanchez to leg bag and [place] to large bag Drain: [place] Please Follow Up With: Carlo Scott MD When: Call [phone] for an appointment Meaningful Use Info Meaningful Use Diagnoses (Choose all that apply): None applicable Discharge Plan Admission Admit Date/Time: 03/04/22 09:52 Attending Provider: Carlo Scott Primary Care Provider: Bia Dwyer Instructions Additional Instructions / Restrictions: Patient Problems: Altered Health Status related to Hospitalization Patient Goals: *Optimal Level of Health *Keep Appointments *Medication Compliance *Remain Safe Discharge Orders/Prescriptions Prescriptions: New ciprofloxacin HCl [Cipro] 500 mg tablet 500 mg PO BID Qty: 10 RF: 0 finasteride [Proscar] 5 mg tablet 5 mg PO DAILY Qty: 30 RF: 5 Continued ascorbic acid (vitamin C) 500 mg capsule 500 mg PO QDAY RF: 0 vitamin B complex tablet 1 tab PO DAILY RF: 0 cyanocobalamin (vitamin B-12) 1,000 mcg/mL solution 100 mcg IM QMONTH RF: 0 pravastatin 10 mg tablet 20 mg PO DAILY RF: 0 dicyclomine 10 mg capsule 10 mg PO BID RF: 0 albuterol sulfate 90 mcg/actuation HFA aerosol inhaler 2 puff Inhalation Q4H PRN (Reason: shortness of breath) Qty: 1 RF: 6 amlodipine 10 mg tablet 10 mg PO DAILY Qty: 90 RF: 3 Hold Instructions: hold ferrous sulfate [iron] 325 mg (65 mg iron) Tablet 325 mg PO DAILY RF: 0 cholecalciferol (vitamin D3) 50 mcg (2,000 unit) capsule 2,000 unit PO DAILY RF: 0 Referrals / Follow Up: Carlo Scott MD [STAFF PHYSICIAN] - (03/17/22 2:15pm ) Bia Dwyer PA [Primary Care Provider] - (03/12/22 2:00pm)
[2022-03-09 09:05] VITALS: BP 113/54; PULSE 83; RESP 18; TEMP 37; O2SAT 97
[2022-03-09] MEDS: amLODIPine 10 MG Tablet PO (09:09)
[2022-03-09] MEDS: Ferrous Sulfate 325 MG Tablet PO (09:09)
[2022-03-09] MEDS: Finasteride 5 MG Tablet PO (09:09)
[2022-03-09] MEDS: Menthol/Lanolin/Calamine/Znox 113 GM Tube 1 APPLIC TOPICAL (09:09)
[2022-03-09] MEDS: Docusate Sodium 100 MG Capsule PO (09:09)
--- NOTE | 2022-03-09 09:13 | PHA.DC.MR ---
Pharmacy Service has performed discharge medication reconciliation for this patient. The patient's discharge medication list was reviewed for discrepancies and discrepancies were resolved. Home Medications albuterol sulfate 90 mcg/actuation aerosol inhaler 2 puff INHALATION Q4H PRN #1 device 10/10/18 ascorbic acid (vitamin C) 500 mg capsule 500 mg PO QDAY cap 10/10/18 cyanocobalamin (vitamin B-12) 1,000 mcg/mL injection solution 100 mcg IM QMONTH 10/10/18 dicyclomine 10 mg capsule 10 mg PO BID cap 10/10/18 pravastatin 10 mg tablet 20 mg PO DAILY tab 10/10/18 vitamin B complex 1 tab PO DAILY 10/10/18 cholecalciferol (vitamin D3) 2,000 unit PO DAILY 07/08/21 ferrous sulfate [iron] 325 mg PO DAILY 07/08/21 amlodipine 10 mg tablet 10 mg PO DAILY #90 tab 02/13/22 ciprofloxacin HCl [Cipro] 500 mg PO BID #10 tab 03/05/22 finasteride [Proscar] 5 mg PO DAILY #30 tab 03/05/22
[2022-03-11 07:16] LABS: Bedside Glucose 96 mg/dL (74-106)
== END 2022-03-09 10:30 | disposition home or self-care (01) | DRG 713 ==
PROVIDERS: Anesthesiology; Admitting Provider Urology; PCP Physician Assistant; Referring Provider Urology; Visit Provider Urology
PROC: 0W3R8ZZ Control Bleeding in Genitourinary Tract, Via Natural or Artificial Opening Endoscopic (ICD-10-PCS; principal; 2022-03-04 15:45)
PROC: 0VB07ZZ Excision of Prostate, Via Natural or Artificial Opening (ICD-10-PCS; principal; 2022-03-06 14:40)
DX: N40.1 Benign prostatic hyperplasia with lower urinary tract symptoms (principal); N13.8 Other obstructive and reflux uropathy; E11.9 Type 2 diabetes mellitus without complications; D50.0 Iron deficiency anemia secondary to blood loss (chronic); F41.9 Anxiety disorder, unspecified; G25.81 Restless legs syndrome; J45.909 Unspecified asthma, uncomplicated; K21.9 Gastro-esophageal reflux disease without esophagitis; G47.33 Obstructive sleep apnea (adult) (pediatric); R31.0 Gross hematuria; R33.8 Other retention of urine; H91.93 Unspecified hearing loss, bilateral; Z87.11 Personal history of peptic ulcer disease; Z85.528 Personal history of other malignant neoplasm of kidney; Z79.899 Other long term (current) drug therapy; Z90.5 Acquired absence of kidney
CPT/HCPCS: 36415; 80048; 82962; 83036; 85025; 85610; 85730; 88305; 93005; J7030; J7120; A4216; J2405

== ENCOUNTER → 2022-11-02 | Outpatient (CLI) | payer MEDICARE, OTHER, SELFPAY ==
--- NOTE | 2022-11-02 13:47 | RAD_ITS ---
INDICATION: CALCULUS OF URETER EXAMINATION/TECHNIQUE: X-RAY - XR Abdomen 1 View COMPARISON: None. FINDINGS: The bowel gas pattern is normal. There is no bowel obstruction. Sensitivity for free air limited on supine view. No abnormal mass or calcification is seen. Small calcification in the right hemipelvis likely a phlebolith. Surgical clips in the right midabdomen. Degenerative changes of the lumbar spine and hips. Lung bases are not well assessed. RAD/Abdomen Single View IMPRESSION: No acute findings. Electronically Signed: Trinity Granados MD at 7:50 EST ,
== END | disposition home or self-care (01) ==
LOC: LAB 13:18 → RAD 13:23
PROVIDERS: PCP Physician Assistant; Referring Provider Urology; Visit Provider Urology
DX: N20.1 Calculus of ureter (principal)
CPT/HCPCS: 74018